=== PATIENT | male | born 1955 | race Caucasian/White ===

== ENCOUNTER 2020-05-02 11:57 | Inpatient (IN) | payer MEDICARE, OTHER, SELFPAY ==
[2020-05-02] VITALS (8 sets, daily range): BP systolic 91–138; BP diastolic 60–94; PULSE 76–126; RESP 14–32; TEMP 36.7–36.8; O2SAT 92–100; BMI 36.5
--- NOTE | 2020-05-02 12:39 | XR_ITS ---
WS: [id number] Exam: XR chest 1V portable [id number] Date/Time of Exam: 05/02/2020 1:51 PM Reason For Exam: palpitations Findings: No priors. There is infiltrate along the right heart border. This could represent pneumonia or chronic change. T he heart is enlarged. Costophrenic angles are slightly blunted which may represent a small pleural ef fusion versus pleural thickening. No pneumothorax. The mediastinum and bony thorax are unremarkable. XR/XR chest 1V portable [id number] IMPRESSION: 1. Infiltrate along the right heart border. This could represent pneumonia or c hronic change. 2. Cardiac enlargement. 3. Slightly blunted costophrenic angle suggesting either minimal pleural effusi on or pleural thickening.
--- NOTE | 2020-05-02 12:40 | ECG_ITS ---
[facility] Test Date: 2020-05-02 Pat Name: Abarham Newton Department: Room: 107 Gender: Male System Dispatcher: GILA FELTONB: 1955 Requested By: Da Alvarado Order Number: [id number] Cast MD: Eloisa Helms M.D. Measurements Intervals [facility] Rate: 133 P: [place]: -1 QRS: 62 QRSD: 88 T: 95 QT: 314 QTc: 469 Interpretive Statements ATRIAL FIBRILLATION WITH RAPID VENTRICULAR RESPONSE ANTEROLATERAL MYOCARDIAL INFARCTION [40+ ms Q WAVE IN I/aVL/V3-V6], OF INDETERMINATE AGE No previous ECG available for comparison Electronically Signed On 05-03-2020 7:18:40 CDT by Eloisa Helms M.D. [id number]
--- NOTE | 2020-05-02 12:54 | USCV_ITS ---
Abraham Newton Age: 65 Gender: M : 1955 Exam Date: 05/02/2020 13:21 Ordering Phys: Luz Ferris MD Technologist: Girma Lopez Exam Location: [facility] [place] Indication: LEG PAIN Risk Factors: Previous Vascular Surgery: RIGHT LEFT BP: 116.0 / 92.00 BP: 125.0/ 91.00 0 0 Waveform Velocity (cm/s) Velocity (cm/s) Waveform Triphasic 57.5 Iliac Prox 75.1 Triphasic Triphasic 74.9 Iliac Mid 72.5 Triphasic Triphasic Iliac Distal Triphasic 87.6 71.8 Triphasic 92.0 SERVICE OBSERVER CHIEF 62.1 Triphasic Triphasic 48.0 SFA Prox 53.7 Triphasic Triphasic 89.7 SFA Mid 65.4 Triphasic Triphasic 52.0 SFA Dist 58.8 Triphasic Triphasic 40.1 POP 23.1 Triphasic Monophasic 96.6 VICE PRESIDENT 19.5 Monophasic Monophasic DPA 32.7 Monophasic 1.4 LIZZ 0.7 FINDINGS Mild to moderate diffuse plaques in the iliac and femoral arteries Supernormal resting LIZZ on the right side. Moderately diminished resting LIZZ on the left side CONCLUSIONS Abnormal resting LIZZ on the left side, suggestive of moderate peripheral artery disease. Mild to moderate diffuse plaque in the iliac and femoral arteries bilaterally Dr Jacqueline Desai MD [facility] (Electronically Signed) Final Date: 02 May 2020 20:17 S
--- NOTE | 2020-05-02 12:55 | ED_ITS ---
HPI - Arrhythmia/Palpitations General: Chief Complaint: Arrhythmia/Palpitations Stated Complaint: Swelling in legs Time Seen by Provider: 05/02/20 12:37 Source: patient Mode of arrival: ambulatory Limitations: no limitations History of Present Illness: HPI narrative: 65-year-old male who just moved here 3 days ago. He has a history of A. fib along with CHF. He states that he lost all of his medications in his move and does not have a primary care doctor here. He states he only medicine that he has been taking his Xarelto. He had increased swelling in his legs along with shortness of breath and palpitations. Patient is in A. fib here with heart rate in the 140s. He denies any chest pain. Denies any worsening or improving factors. Denies any fevers. Associated symptoms: Deny nausea or vomiting Review of Systems Const: Denies: fever(s), chills, body aches or change in appetite Eyes: Denies: blurry vision or eye discomfort ENMT: Denies: throat pain or dental pain Card: Denies: chest pain Resp: Denies: dyspnea GI: Denies: abdominal pain, nausea, vomiting or diarrhea : Denies: dysuria Musc: Reports: extremity swelling Skin/Breast: Denies: rash Neuro: Denies: headache(s) Psych: Denies: depression Edward/Lymph: Denies: easy bruising All/Imm: Denies: urticaria Physical Exam Const: COMMON NORMALS: no acute distress, patient oriented x3 and healthy appearing HENMT: COMMON NORMALS: normocephalic and atraumatic HEAD & SCALP: normocephalic and atraumatic Eye: COMMON NORMALS: Equal, round and reactive pupils present and EOMs intact bilaterally PUPIL: Yes Equal, round and reactive pupils present Neck/C-Spine: COMMON NORMALS: full ROM and supple Chest: COMMONS NORMALS: normal inspection of the chest and normal palpation of entire chest wall Resp: COMMON NORMALS: normal respiratory effort, No retractions, No use of accessory muscles and clear to auscultation bilaterally AUSCULTATION: clear to auscultation bilaterally Cardio: COMMON NORMALS: regular rate and No murmurs present (Cardio) RATE: regular rate and tachycardic RHYTHM: abnormal rhythm irregularly irregular GI: COMMON NORMALS: Normal to inspection, nondistended, normoactive bowel sounds present, Soft to palpation, non-tender and no masses PALPATION: Yes Soft to palpation Extremity: COMMON NORMALS: normal to inspection and full ROM NARRATIVE EXTREMITY EXAM: 2+ edema to lower extremities Neuro: COMMON NORMALS: patient oriented x3, moves all extremities and no focal motor deficits Psych: COMMON NORMALS: mental status grossly normal, Normal thought process present and cooperative THOUGHT PROCESS: Normal thought process present Skin: COMMON NORMALS: no rashes or lesions noted and no wounds GENERAL SKIN EXAM: no rashes or lesions noted Course Vital Signs: Vital signs: Vital Signs Temperature 98.3 F 05/02/20 12:27 Pulse Rate 114 H 05/02/20 13:30 Respiratory Rate 32 H 05/02/20 13:30 Blood Pressure 122/90 05/02/20 13:30 Pulse Oximetry 92 05/02/20 13:30 MDM - Arrhythmia/Palpitations MDM Narrative: Medical decision making narrative: Patient presents here with A. fib RVR along with CHF exacerbation. This is likely due to noncompliance of his meds. Patient's heart rate here is improved with Cardizem and patient was placed on a Cardizem drip. I spoke to hospitalist and will admit. Patient has been stable while here. Patient has no signs of pneumonia or pulmonary embolism. Lab Data: Labs: Lab Results 05/02/20 05/02/20 05/02/20 Range/Units 12:53 12:53 12:53 WBC 7.6 (4.0-10.0) 10^3/ uL RBC 3.87 L (4.1-5.3) 10^6/u L Hgb 12.8 (11.7-16.6) g/dL Hct 41.5 L (42.0-52.0) % MCV 107.2 H (80-94) fL MCH 33.1 (28.0-34.0) pg MCHC 30.8 (30.0-36.0) g/dL RDW 15.3 H (12.1-15.1) % Plt Count 174 (130-400) 10^3/c mm MPV 11.4 H (7.4-10.4) fL Neut % (Auto) 69.3 % Lymph % (Auto) 21.9 % Martin % (Auto) 5.9 % Eos % (Auto) 1.8 % Baso % (Auto) 0.7 % Neut # (Auto) 5.27 (1.8-7.7) 10^3/u L Lymph # (Auto) 1.7 (0.8-4.8) 10^3/u L Martin # (Auto) 0.5 (0.2-0.9) 10^3/u L Eos # (Auto) 0.1 (0.0-0.8) 10^3/u L Baso # (Auto) 0.1 (0.0-0.1) 10^3/u L Nucleated RBC % (a uto) 0 % Nucleated RBCs # 0.0 /100WBC Sodium 138 (136-145) mmol/L Potassium 3.5 (3.5-5.1) mmol/L Chloride 100 (98-107) mmol/L Carbon Dioxide 23 (22-29) mmol/L Anion Gap 18.5 (5-19) BUN 21 (8-23) mg/dL Creatinine 1.1 (0.7-1.2) mg/dL GFR Calculation 67.0 L (90-130) mL/min Glucose 110 (65-115) mg/dL Calculated Osmolal ity 290 (285-295) mOsm/k g Calcium 10.0 (8.5-10.5) mg/dL Total Bilirubin 1.3 H (0.15-1.2) mg/dL AST 20 (0-40) U/L ALT 10 (0-41) U/L Alkaline Phosphata se 69 (40-130) IU/L Troponin T Baselin e 38 H (0-15) ng/L NT-Pro-B Natriuret Pep 5444 H (0-125) pg/mL Total Protein 7.4 (6.6-8.7) g/dL Albumin 4.0 (3.5-5.2) g/dL Globulin 3.4 (1.3-4.6) g/dL Imaging Data^: CXR: Radiologist's impression: [address] [address] XRay Report Signed Patient: Abraham Newton Unit #: [id number] : 1955 Age/Sex: 65 / M ADM Date: 04/08 12/25 Loc: ER Room/Bed: Attending Dr: Ordering Provider/Ordering MD: Da Alvarado Date of Service: 05/02/20 Procedure(s): XR chest 1V portable [id number] Accession Number(s): [id number] Report Number: [id number] WS: [id number] Exam: XR chest 1V portable [id number] Date/Time of Exam: 05/02/2020 1:51 PM Reason For Exam: palpitations Findings: No priors. There is infiltrate along the right heart border. This could represent pneumonia or chronic change. The heart is enlarged. Costophrenic angles are slightly blunted which may represent a small pleural effusion versus pleural thickening. No pneumothorax. The mediastinum and bony thorax are unremarkable. XR/XR chest 1V portable [id number] IMPRESSION: 1. Infiltrate along the right heart border. This could represent pneumonia or chronic change. 2. Cardiac enlargement. 3. Slightly blunted costophrenic angle suggesting either minimal pleural effusion or pleural thickening. EKG Data^: EKG 1: Attestation: I personally reviewed and interpreted this EKG as follows: EKG interpretation date: 05/02/20 EKG interpretation time: 12:26 Interpretation: afib hr [address] or t wave abnormalities qrs 88 qtc 392 Other EKG comments: Chest X-Ray 05/02/20 12:39 IMPRESSION: 1. Infiltrate along the right heart border. This could represent pneumonia or chronic change. 2. Cardiac enlargement. 3. Slightly blunted costophrenic angle suggesting either minimal pleural effusion or pleural thickening. Discharge Plan Discharge Patient Disposition: Admitted As Inpatient Clinical Impression: Atrial fibrillation Qualifiers: Atrial fibrillation type: unspecified Qualified Code(s): I48.91 - Unspecified atrial fibrillation Congestive heart failure Qualifiers: Heart failure type: unspecified Condition: Stable Coding Level of Care Code ED Explosive Ordnance Technician for Chg Fwd Exam Comprehensive
[2020-05-02 13:08] LABS: Basophils # 0.1 10^3/uL (0.0-0.1); Basophils % 0.7 %; Eosinophils # 0.1 10^3/uL (0.0-0.8); Eosinophils % 1.8 %; Hematocrit 41.5 % (42.0-52.0); Hemoglobin 12.8 g/dL (11.7-16.6); Lymphocytes # 1.7 10^3/uL (0.8-4.8); Lymphocytes % 21.9 %; Mean Corpuscular HGB Conc 30.8 g/dL (30.0-36.0); Mean Corpuscular Hemoglobin 33.1 pg (28.0-34.0); Mean Corpuscular Volume 107.2 fL (80-94); Mean Platelet Volume 11.4 fL (7.4-10.4); Monocytes # 0.5 10^3/uL (0.2-0.9); Monocytes % 5.9 %; Neutrophils # 5.27 10^3/uL (1.8-7.7); Neutrophils % 69.3 %; Nucleated Red Blood Cells % 0 %; Platelet Count 174 10^3/cmm (130-400); Red Blood Count 3.87 10^6/uL (4.1-5.3); Red Cell Distribution Width 15.3 % (12.1-15.1); White Blood Count 7.6 10^3/uL (4.0-10.0)
[2020-05-02 13:32] LABS: Troponin(5th) Baseline 38 ng/L (0-15)
[2020-05-02 13:40] LABS: Alanine Aminotransferase 10 U/L (0-41); Alkaline Phosphatase 69 IU/L (40-130); Aspartate Amino Transferase 20 U/L (0-40); Blood Urea Nitrogen 21 mg/dL (8-23); Carbon Dioxide 23 mmol/L (22-29); Chloride 100 mmol/L (98-107); Globulin 3.4 g/dL (1.3-4.6); Glucose 110 mg/dL (65-115); NT Pro B Type Natriuretic Pept 5444 pg/mL (0-125); Osmolality Calculated 290 mOsm/kg (285-295); Sodium 138 mmol/L (136-145); Total Bilirubin 1.3 mg/dL (0.15-1.2); Total Protein 7.4 g/dL (6.6-8.7)
[2020-05-02 13:54] LABS: Anion Gap 18.5 (5-19); Potassium 3.5 mmol/L (3.5-5.1)
--- NOTE | 2020-05-02 14:40 | ECG_ITS ---
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 Measurements Intervals [place] Rate: 107 P: [place]: -1 QRS: 75 QRSD: 98 T: 91 QT: 372 QTc: 497 Interpretive Statements ATRIAL FIBRILLATION WITH RAPID VENTRICULAR RESPONSE LOW QRS VOLTAGE IN EXTREMITY LEADS [QRS DEFLECTION < 0.5 mV IN LIMB LEADS] PROBABLE INFERIOR MYOCARDIAL INFARCTION , PROBABLY OLD [35 ms Q WAVE IN II/aVF] ANTEROLATERAL MYOCARDIAL INFARCTION , OF INDETERMINATE AGE [40+ ms Q WAVE IN I/aVL/V3-V6] Compared to ECG 05/02/2020 12:26:09 Low QRS voltage now present Myocardial infarct finding still present Electronically Signed On 05-03-2020 7:36:37 CDT by Eloisa Helms M.D. [id number] f
--- NOTE | 2020-05-02 15:16 | P.HP_ITS ---
Providers/Chief Complaint Admitting Physician: Ced Hankins Chief Complaint: Swelling in legs History of Present Illness Abraham Newton is a 65 year old gentleman originally from [place], but states his other home is in [place], has been traveling across the country with his sons in a trailer. He has a history of CHF, AFib and says several months ago had a stress test in [place], although did not require an angiogram at that time. Says he has been getting tired easily, short of breath with exertion, also having orthopnea, and has not been able to sleep. Also noticed has been having more progressive swelling in lower extremities, with some bilateral erythema. A day ago also noticed blue discoloration of his lateral 3 digits on the right foot. Denies any trauma. He says that his medications got wet and he has not been able to take any of his medicines which include aspirin, statin, Lasix, lisinopril, metoprolol, as well as has missed some doses of Xarelto among a few others. He takes Xarelto for atrial fibrillation. Denies history of DVT or PE. He says he is been working with at risk [place]. He says he has been drinking a lot of water there. He denies any fevers, any cough, has had no chest pain. Denies any headache, runny nose, sneezing, muscle aches or chills. No nausea vomiting or diarrhea. He is not normally on oxygen. He says he used to smoke, and stopped for a while, but recently has been feeling depressed, and so has been taking some occasional cigarettes. He states he drinks alcohol only on occasion. He says he used to take Xanax for anxiety. Has not been on antidepressant medication. He denies any suicidal ideation. In ER he is noted with A. fib with RVR, heart rates in 130s. First troponin is 38. No chest pain. He started on Cardizem drip, with improvement down to 100s. Maintaining blood pressure. Chest x-ray with possible infiltrate on chronic change along the right heart border. BNP is elevated. At 5444. Creatinine 1.1. He reports feeling anxious and is asking for Xanax which he says used to take in the past. Review of Systems Const: Reports: change in sleep pattern (Not sleeping well. Is to sleep in a chair. Wakes up due to dyspnea.); Denies: fever(s), chills, body aches or malaise Eyes: Denies: change in vision or eye redness ENMT: Denies: throat pain, oral sores or ear or mastoid pain Card: Reports: irregular heart rhythm, edema, swelling of feet/ankles, dyspnea on exertion, orthopnea and other (Blue lateral 3 toes on the right foot in the last 1 day or so, no pain); Denies: chest pain or pre-syncope Resp: Reports: dyspnea; Denies: productive cough, non-productive cough, wheezing, pain on inspiration, change in phlegm color, hemoptysis or chest congestion GI: Denies: abdominal pain, nausea, vomiting, diarrhea, constipation, hematochezia or melena : Denies: flank pain, difficulty urinating, urinary frequency or hematuria Musc: Reports: other (Bilateral lower extremity edema. Right foot lateral 3 toes blue discoloration, although left side is doing it feels cooler to touch. Left side somewhat cool to touch, but dopplerable PT and DP pulses bilaterally.); Denies: joint pain, joint swelling or joint redness Skin/Breast: Reports: erythema (Chronic bilateral lower extremities below the knees) Neuro: Denies: headache(s), numbness in extremities, weakness in extremities, dizziness, confusion or seizure-like activity Endo: Denies: polyuria or polydipsia Edward/Lymph: Denies: easy bleeding or purpura All/Imm: Denies: urticaria, throat swelling or tongue swelling Medications/Allergies Home Medications Medication Instructions Recorded Confirmed Last Taken Type acetaminophen [Tylenol Extra 1,000 mg PO PRN 05/02/20 05/02/20 05/01/20 History Strength] aspirin 81 mg PO DAILY 05/02/20 05/02/20 Unknown History atorvastatin [Lipitor] 20 mg PO BEDTIME 05/02/20 05/02/20 05/01/20 History furosemide [Lasix] 40 mg PO DAILY 05/02/20 05/02/20 Unknown History lisinopril 20 mg PO DAILY 05/02/20 05/02/20 Unknown History magnesium 1 tab PO DAILY 05/02/20 05/02/20 Unknown History metoprolol succinate 100 mg PO DAILY 05/02/20 05/02/20 Unknown History potassium chloride See Rx Instructions .ROUTE .COMPLEX 05/02/20 05/02/20 Unknown History rivaroxaban [Xarelto] 20 mg PO DAILY 05/02/20 05/02/20 05/01/20 History Allergies Allergy/AdvReac Type Severity Reaction Status Date / Time No Known Allergies Allergy Verified 05/02/20 14:33 PFSH Acute PFSH: Medical History Anxiety Atrial fibrillation Congestive heart failure HLD (hyperlipidemia) HTN (hypertension) Smoking addiction Surgical History History of back surgery Family History Father CAD (coronary artery disease) Open heart surgery Social History Smoking and tobacco status: current some day smoker cigarettes [ Other cigarette details: Subsequently heavy smoker, quit for a while, but recently has been occasionally smoking a cigarette ] Alcohol intake: current Alcohol intake frequency: holidays/special occasions only Substance/Drug Use: former Date of last use: Occasional marijuana use where it was legal in [facility] Lives independently: Yes Household members: children and other Details: Lives with his son Marital status: Current occupational status: employed Vitals/I&O/Wt Last Vital Signs Temp 98.3 F 05/02/20 12:27 Pulse 111 H 05/02/20 14:30 Resp 32 H 05/02/20 14:30 BP 130/88 05/02/20 14:30 Pulse Ox 95 05/02/20 14:30 Weight last 48 hrs Weight 108.862 kg Physical Exam Const: COMMON NORMALS: no acute distress and patient oriented x3 HENMT: COMMON NORMALS: oropharynx normal Neck/C-Spine: COMMON NORMALS: no JVD Resp: COMMON NORMALS: normal respiratory effort and clear to auscultation bilaterally AUSCULTATION: clear to auscultation bilaterally Cardio: COMMON NORMALS: no JVD, regular rhythm, S1 normal heart sound present, S2 normal heart sound present and No murmurs present (Cardio) RATE: tachycardic RHYTHM: abnormal rhythm irregularly irregular HEART SOUNDS: S1 normal heart sound present and S2 normal heart sound present PERIPHERAL PULSES: posterior tibial pulses present (By Doppler) positive bilateral and dorsalis pedis present (By Doppler) GI: COMMON NORMALS: Normal to inspection, nondistended, normoactive bowel sounds present, Soft to palpation and non-tender PALPATION: Yes Soft to palpation Extremity: COMMON NORMALS: no joint enlargement GENERAL: Yes edema (3+) RIGHT LOWER EXTREMITY: Yes foot & digits (Blue discoloration lateral 3 digits, mostly dorsal distribution. Foot does not feel cold.) Neuro: COMMON NORMALS: patient oriented x3 and moves all extremities Skin: COMMON NORMALS: no rashes or lesions noted GENERAL SKIN EXAM: erythema (Chronic venous stasis bilateral lower extremities below the knees) Data : 05/02/20 12:53 05/02/20 12:53 A&P Assessment and plan (1) Paroxysmal atrial fibrillation with RVR: A. fib with RVR heart rate in 130s. Medications got worse over the been taking them. Used to be on metoprolol 100 mg daily. Xarelto. Continue Cardizem. Monitor on telemetry. Replace hypomagnesemia. Treat CHF. Status: Acute (2) Acute exacerbation of CHF (congestive heart failure): Acute CHF, type unknown. Reports history of CHF, does not remember his EF. Will assess by TTE. Lasix 40 mg IV every 12 hours. Monitor I&O. Daily weights. Bilateral lower extremity edema, will also check duplex to exclude VTE as he has not been taking Xarelto. Follow troponin EKG series. Hold lisinopril for now diarrhea and in case may require contrast studies. Continue aspirin, beta-dorian, statin. Status: Acute (3) Blue toes: Reports about a day history of blue toes, lateral 3 toes on the right foot appear blue. Not painful. Sensation appears intact. He is afebrile, and has not been taking his Xarelto, discussed with him possibility of embolic disease, thrombus, versus plaque with blue toe syndrome, as he does have risk factors for cardiovascular disease. At this time will anticoagulate. X-ray obtained, no fractures noted. Arterial duplex was obtained in ER. Requesting also for toe brachial pressures. TTE. Neurovascular checks. Appreciate interventional cardiology assessment. No signs of sepsis. We will obtain blood culture. Status: Acute (4) Venous stasis dermatitis: Bilaterally. Treat CHF. Assess arterial perfusion. If good, can consider compression therapy. Status: Acute (5) Anxiety: Would benefit from follow-up with [facility] after discharge. Has been recently having more anxiety, also depression. Denies any suicidal ideation. Request for Xanax which she used to take for anxiety. Monitor for any changes in symptoms. Consider initiation of additional therapy if remains stable from cardiac perspective. Status: Acute (6) Smoking addiction: Discussed smoking cessation for 4 minutes. He states he understands that he needs to quit. Says that he had quit entirely in the past, but recently has been more stressed and has been taking occasional cigarettes. Will provide nicotine replacement as needed while in the hospital. Continue to encourage cessation. Will need additional evaluation of his anxiety and depression. Status: Acute (7) Pulmonary infiltrate: Incidentally noted pulmonary filtrate at the right heart border. Otherwise has no symptoms of pneumonia. Has had no fevers, there is no leukocytosis. She is not coughing. This may be secondary to CHF. We will closely assess by CT of the chest. For now noncontrast. Duplex lower extremities. He is initiated on anticoagulation. Will assess blood culture. For now monitor without antibiotics. Treat CHF. Status: Acute Additional A&P Information Lack of adherence with medical therapy: He says his medications got wet, and because of that has not been taking them, he says intermittently only been taking Xarelto. Looking through his bottles many of them were empty and filled in February. He states he does not currently see a primary care provider. Attestations Medical Necessity Statement*: Admission for 2 midnights continued for asse ssment of management of CHF exacerbation, A. fib with RVR, blue toes, off his medical therapy for unknown amount of time. Coding Level of Care Code Acute Drill Operator Automatic for [facility] Fwd Exam Comprehensive Diagnoses Paroxysmal atrial fibrillation with RVR I48.0 Acute exacerbation of CHF (congestive heart failure) I50.9 Blue toes R23.0 Venous stasis dermatitis I87.2 Anxiety F41.9 Smoking addiction F17.200 Pulmonary infiltrate R91.8
--- NOTE | 2020-05-02 15:40 | USCV_ITS ---
Abraham Newton Age: 65 Gender: M : 1955 Exam Date: 05/02/2020 16:24 Ordering Phys: Ced Hankins MD Technologist: Jenae Shelton [place] [facility] [place] CHF BP: 138 / 94 HR: 116 Rhythm: Sinus Technical Quality: Adequate MEASUREMENTS (Male / Female) Normal Values 2D ECHO LV Diastolic Diameter PLAX 5.1 cm 4.2 - 5.9 / 3.9 - 5.3 cm LV Systolic Diameter PLAX 4.1 cm LV Chamber Size 5.0 cm IVS Diastolic Thickness 1.3 cm 0.6 - 1.0 / 0.6 - 0.9 cm IVS Systolic Thickness 1.4 cm LVPW Diastolic Thickness 1.6 cm 0.6 - 1.0 / 0.6 - 0.9 cm LVPW Systolic Thickness 1.7 cm RV Chamber Size 3.5 cm LVOT Diameter 2.0 cm LV Ejection Fraction 2D Teich 40.7 % LV Ejection Fraction MOD 2C 47.8 % LV Ejection Fraction 2C AL 45.9 % LA Diameter 4.7 cm LA Width 3.9 cm LA Height 5.9 cm RA Width 5.6 cm RA Height 5.7 cm Aorta at Sinotubular Diameter 2.6 cm M-MODE LV Diastolic Diameter MM 6.5 cm 4.2 - 5.9 / 3.9 - 5.3 cm LV Systolic Diameter MM 5.3 cm LV Ejection Fraction MM Teich 38.1 % IVS Diastolic Thickness MM 1.1 cm 0.6 - 1.0 / 0.6 - 0.9 cm IVS Systolic Thickness MM 0.9 cm LVPW Diastolic Thickness MM 1.0 cm 0.6 - 1.0 / 0.6 - 0.9 cm LVPW Systolic Thickness MM 1.3 cm Aortic Annulus Diameter 2.8 cm LA Ao Ratio MM 1.8 MV E Point Septal Separation 1.4 cm DOPPLER AV Peak Velocity 106.3 cm/s LVOT Peak Velocity 73.3 cm/s AV Area Cont Eq vti 2.0 cm squared AV Area Cont Eq pk 2.1 cm squared MV Area PHT 8.1 cm squared Mitral E to A Ratio 5.3 MV E' Velocity 102.0 cm/s TR Peak Velocity 323.4 cm/s TR Peak Gradient 41.8 mmHg TR Mean Velocity 266.1 cm/s TR Mean Gradient 31.9 mmHg TR Velocity Time Integral 96.5 cm TV Peak E Velocity 75.0 cm/s Right Atrial Pressure 3.0 mmHg Pulmonary Artery Systolic Pressu 44.8 mmHg PV Peak Velocity 60.0 cm/s RV Acceleration Time 0.1 s RV Ejection Time 0.3 s RV AcT/ET 0.4 FINDINGS Left Ventricle Moderately increased left ventricular cavity size. Severely decreased left ventricular systolic function. Global left ventricular hypokinesis. Left ventricular ejection fraction is estimated at 38 %. Grade III/IV diastolic dysfunction (restrictive filling pattern), severely elevated filling pressures. Right Ventricle Normal right ventricular size. Moderate pulmonary hypertension, RVSP 44.8 mmHg. Right Atrium Moderately increased right atrial size. Left Atrium Moderately increased left atrial size. Mitral Valve Moderately thickened mitral valve. No mitral valve stenosis. Moderate mitral valve regurgitation. Aortic Valve Severe aortic valve calcification. Mild restriction of aortic valve noted otherwise no significant stenosis. Trace aortic insufficiency Tricuspid Valve Thickened tricuspid valve. Moderate tricuspid valve regurgitation. Pulmonic Valve Structurally normal pulmonic valve without significant stenosis. There is no pulmonic regurgitation. Pericardium Normal pericardium without effusion. Aorta Normal ascending aorta dimension. CONCLUSIONS 1-Moderately increased left ventricular cavity size. Severely decreased left ventricular systolic function. Global left ventricular hypokinesis. Left ventricular ejection fraction is estimated at 38 %. Grade III/IV diastolic dysfunction (restrictive filling pattern), severely elevated filling pressures. 2-Normal right ventricular size. Moderate pulmonary hypertension, RVSP 44.8 mmHg. 3-Moderate biatrial enlargement 4-Moderately thickened mitral valve. No mitral valve stenosis. Moderate mitral valve regurgitation. 5-Severe aortic valve calcification. Mild restriction of aortic valve noted otherwise no significant stenosis. Trace aortic insufficiency. 6-Thickened tricuspid valve. Moderate tricuspid valve regurgitation. 7-There is no pericardial effusion. 8-Right atrial pressure is around 10 mm of mercury. 9-There are no prior echocardiogram studies to compare. Brennon Salazar MD (Electronically Signed) Final Date: 02 May 2020 17:29 S
--- NOTE | 2020-05-02 15:40 | USCV_ITS ---
Abraham Newton Age: 65 Gender: M : 1955 Exam Date: 05/02/2020 16:03 Ordering Phys: Ced Hankins MD Technologist: Jayne Pantoja [place] [facility] [place]: BLUE TOES RIGHT LEFT Brachial 138.00 mmHg Brachial 129.00 mmHg Pressure (mmHg) Waveform Pressure (mmHg) Waveform 87.00 Pre-Exercise Toe Pressure 71.00 0.63 Pre-Exercise Toe/Brachial Index 0.51 FINDINGS Assess TBI only Abnormal resting TBI's bilaterally CONCLUSIONS Abnormal resting TBIs bilaterally suggestive of mild to moderate peripheral artery disease Dr Jacqueline Desai MD FACC (Electronically Signed) Final Date: 02 May 2020 20:24 S
--- NOTE | 2020-05-02 15:40 | XR_ITS ---
WS: [id number] Exam: XR foot RT min 3V* [id number] Date/Time of Exam: 05/02/2020 3:40 PM Reason For Exam: blue lateral 3 toes No fracture or dislocation noted. No soft tissue foreign bodies. Moderate DJD at the first MP joint. No sign of bone destruction. Large plantar heel spur. XR/XR foot RT min 3V* [id number] IMPRESSION: 1. No fracture or dislocation. 2. Other minor findings as above.
--- NOTE | 2020-05-02 15:40 | USCV_ITS ---
NewtonAbraham Age: 65 Gender: M : 1955 Exam Date: 05/02/2020 16:12 Ordering Phys: Ced Hankins MD Technologist: Jenae Shelton Exam Location: [facility] [place] Indication: assess for DVT HISTORY: DVT. PROCEDURES: Venous duplex imaging was performed in bilateral lower extremities. The following venous structures were evaluated: common femoral vein, profunda vein, proximal portion of the greater saphenous vein, superficial femoral vein, and the popliteal vein. In addition, the posterior tibial and peroneal trunk were evaluated. Serial compression, augmentation maneuvers, and spectral Doppler flow evaluation were performed. FINDINGS: Normal 2-D Doppler and augmentation and compressibility throughout the lower extremity venous structures. Additional imaging through the proximal calf veins also reveals no thrombus. Limited evaluation of the greater saphenous vein is patent with no thrombus. CONCLUSIONS No DVT bilateral lower extremities. Dr. Toya Odell DO (Electronically Signed) Final Date: 03 May 2020 09:01 S
[2020-05-02 16:15] LABS: Estmated Average Glucose 103; Hemoglobin A1C 5.2 % (4.0-6.0)
[2020-05-02 16:27] LABS: Troponin 5 2HR 35.24 ng/L (0-15)
[2020-05-02 16:31] LABS: Troponin 5 2HR Delta -2.76 ABS# (0-10)
[2020-05-02 16:32] LABS: C Reactive Protein 20.5 mg/L (0.0-4.9)
[2020-05-02 16:46] LABS: Magnesium 1.4 mg/dL (1.7-2.3)
[2020-05-02] MEDS: FUROsemide 10 mg/mL SDV 4mL 40 MG IVP (17:43)
[2020-05-02] MEDS: magnesium sulfate premix 2 GM/50 ML PIGGYBACK IV (17:43)
[2020-05-02] MEDS: metoprolol tartrate 50 mg Tablet 100 MG PO (17:44)
[2020-05-02] MEDS: enoxaparin 100 mg/mL Syringe SUBCUT (17:44)
--- NOTE | 2020-05-02 18:40 | ECG_ITS ---
[facility] Test Date: 2020-05-02 Pat Name: Abraham Newton Department: Room: 107 Gender: Male Coater Smoking Pipe: : 1955 Requested By: Da Alvarado Order Number: [id number] Cast MD: Eloisa Helms M.D. Measurements Intervals [place] Rate: 72 P: [place]: -1 QRS: 46 QRSD: 97 T: 79 QT: 442 QTc: 487 Interpretive Statements ATRIAL FIBRILLATION LOW QRS VOLTAGE IN EXTREMITY LEADS [QRS DEFLECTION < 0.5 mV IN LIMB LEADS] POSSIBLE INFERIOR MYOCARDIAL INFARCTION [30 ms Q WAVE IN II/aVF], PROBABLY OLD ANTEROLATERAL MYOCARDIAL INFARCTION [40+ ms Q WAVE IN I/aVL/V3-V6], OF INDETERMINATE AGE Compared to ECG 05/02/2020 14:39:44 No significant changes Electronically Signed On 05-03-2020 7:35:33 CDT by Eloisa Helms M.D. [email or web address]
[2020-05-02] MEDS: ALPRAZolam 0.5 mg Tablet PO (18:42)
[2020-05-02 19:14] LABS: Erythrocyte Sedimentation Rate 26 mm/hr (0-10)
[2020-05-02 19:27] LABS: Troponin 5 6HR 36.02 ng/L (0-15)
[2020-05-02 19:44] LABS: Troponin 5 6HR Delta -1.98 ng/L (0-12)
--- NOTE | 2020-05-02 19:52 | P.CONIM_ITS ---
Providers/Reason For Consult Consulting Physican/Specialty*: Cardiology Reason for Consult*: CHF, peripheral arterial disease Attending Physician: Ced Hankins History of Present Illness History of Present Illness Abraham Newton is a 65 year old male past medical history significant for congestive heart failure hypertension chronic atrial fibrillation on anticoagulation with questionable compliance was traveling in the area when past for the past few days he has quit taking his medicine including anticoagulation due to nuisance of taking it. He reports that he developed quickly lower extremity edema and now PND orthopnea to the extent that he was not able to lay flat therefore he decided to come to the ER. He was admitted for decompensated congestive heart failure unspecified for now. Due to bluish discoloration of the feet we were also consulted to assess his lower extremity vascular system. Patient denies any claudication he admits to smoking he denies any prior history of peripheral vascular disease he denies history of coronary artery disease and stroke. Currently he denies chest pain. He has good dopplerable posterior tibial pulse in both feet he has 2+ lower extremity edema anterior tibial were not palpable but both feet has good capillary refill and temperature. Review of Systems Const: Reports: change in sleep pattern (Not sleeping well. Is to sleep in a chair. Wakes up due to dyspnea.); Denies: fever(s), chills, body aches, change in appetite or malaise Eyes: Denies: change in vision, blurry vision, eye discomfort or eye redness ENMT: Denies: throat pain, oral sores, dental pain or ear or mastoid pain Card: Reports: irregular heart rhythm, edema, swelling of feet/ankles, dyspnea on exertion, orthopnea and other (Blue lateral 3 toes on the right foot in the last 1 day or so, no pain); Denies: chest pain or pre-syncope Resp: Reports: dyspnea; Denies: productive cough, non-productive cough, wheezing, pain on inspiration, change in phlegm color, hemoptysis or chest congestion GI: Denies: abdominal pain, nausea, vomiting, diarrhea, constipation, hematochezia or melena : Denies: flank pain, difficulty urinating, dysuria, urinary frequency or hematuria Musc: Reports: extremity swelling and other (Bilateral lower extremity edema. Right foot lateral 3 toes blue discoloration, although left side is doing it feels cooler to touch. Left side somewhat cool to touch, but dopplerable PT and DP pulses bilaterally.); Denies: joint pain, joint swelling or joint redness Skin/Breast: Reports: erythema (Chronic bilateral lower extremities below the knees); Denies: rash Neuro: Denies: headache(s), numbness in extremities, weakness in extremities, dizziness, confusion or seizure-like activity Psych: Denies: depression Endo: Denies: polyuria or polydipsia Edward/Lymph: Denies: easy bruising, easy bleeding or purpura All/Imm: Denies: urticaria, throat swelling or tongue swelling Meds/Allergies Home Medications and Allergies Home Medications Medication Instructions Recorded Confirmed Last Taken Type acetaminophen [Tylenol Extra 1,000 mg PO PRN 05/02/20 05/02/20 05/01/20 History Strength] aspirin 81 mg PO DAILY 05/02/20 05/02/20 Unknown History atorvastatin [Lipitor] 20 mg PO BEDTIME 05/02/20 05/02/20 05/01/20 History furosemide [Lasix] 40 mg PO DAILY 05/02/20 05/02/20 Unknown History lisinopril 20 mg PO DAILY 05/02/20 05/02/20 Unknown History magnesium 1 tab PO DAILY 05/02/20 05/02/20 Unknown History metoprolol succinate 100 mg PO DAILY 05/02/20 05/02/20 Unknown History potassium chloride See Rx Instructions .ROUTE .COMPLEX 05/02/20 05/02/20 Unknown History rivaroxaban [Xarelto] 20 mg PO DAILY 05/02/20 05/02/20 05/01/20 History Allergies Allergy/AdvReac Type Severity Reaction Status Date / Time No Known Allergies Allergy Verified 05/02/20 14:33 Current Medications Current Medications Generic Name Dose Route Start Last Admin Trade Name Freq PRN Reason Stop Dose Admin Alprazolam 0.5 mg 05/02/20 18:13 05/02/20 18:42 Xanax PO 0.5 mg DAILY PRN Administration ANXIETY Enoxaparin Sodium 100 mg 05/02/20 16:00 05/02/20 17:44 Lovenox SUBCUT 100 mg Q12H YULI Administration Furosemide 40 mg 05/02/20 15:30 05/02/20 17:43 Lasix IVP 40 mg Q12H YULI Administration Diltiazem HCl 125 mg/ Sodium 125 mls @ 10 mls/hr 05/02/20 14:15 05/02/20 14:30 Chloride IV 10 mg/hr .[id number] YULI 10 mls/hr Administration 10 MG/HR Metoprolol Tartrate 100 mg 05/02/20 15:40 05/02/20 17:44 Lopressor PO 100 mg BID YULI Administration PFSH Acute PFSH: Medical History Anxiety Atrial fibrillation Congestive heart failure HLD (hyperlipidemia) HTN (hypertension) Peripheral Vascular Disease Smoking addiction Surgical History History of back surgery Family History Father CAD (coronary artery disease) Open heart surgery Social History Smoking and tobacco status: current some day smoker cigarettes [ Other cigarette details: Subsequently heavy smoker, quit for a while, but recently has been occasionally smoking a cigarette ] Alcohol intake: current Alcohol intake frequency: holidays/special occasions only Substance/Drug Use: former Date of last use: Occasional marijuana use where it was legal in [facility] Lives independently: Yes Household members: children and other Details: Lives with his son Marital status: Current occupational status: employed Vitals/I&O/Wt Last Vital Signs Temp 98.2 F 05/02/20 16:18 Pulse 101 H 05/02/20 16:18 Resp 24 H 05/02/20 16:18 BP 138/94 05/02/20 16:18 Pulse Ox 93 05/02/20 15:28 05/02/20 05/02/20 05/02/20 06:59 14:59 22:59 Intake Total 290 / 290 Output Total 600 / 600 Balance -310 / -310 Weight last 48 hrs Weight 240 lb Physical Exam Narrative: EXAM NARRATIVE: GENERAL: Patient is alert, awake and oriented x3. NECK: No jugular vein distension. HEENT: No cyanosis. No icterus. No pallor. HEART: Regular S1 and S2. No murmur, rub or gallop. LUNGS: Clear to auscultate bilaterally. ABDOMEN: Soft, nontender and nondistended. Positive bowel sounds. No guarding, rebound or tenderness. CENTRAL NERVOUS SYSTEM: Grossly nonfocal. EXTREMITIES: Lower extremities with 2+ edema bilaterally. Pulses palpable in the lower extremities, only posterior tibial. Dusky appearing feet but good capillary refill temperature is normal feet are moist denies any pain no ulcer Data Micro: Micro: Microbiology 05/02/20 18:30 Blood Culture - Pr eliminary Blood [facility] 05/02/20 11:44 Blood Culture - Pr eliminary Blood SPECIM[facility] A&P Assessment and plan (1) Paroxysmal atrial fibrillation with RVR: Patient has been started on Cardizem drip he is in sinus rhythm. Continue anticoagulation in the form of rivaroxaban. We will switch him to p.o. Cardizem along with metoprolol tomorrow. Status: Acute (2) Acute exacerbation of CHF (congestive heart failure): We agree with diuresis he has already been given 80 mg we will continue 80 mg IV Lasix twice a day along with electrolyte balance. He appeared to be volume overloaded requires 1.5 L negative at least per 24 hours. Status: Acute (3) Peripheral Vascular Disease: Patient has underlying peripheral arterial disease however it does not appear to be symptomatic or in the category of critical limb ischemia. Hopefully with diuresis and improvement of lower extremity edema feet will look better. He has good dopplerable posterior tibial pulse. We will reassess with ABIs once lower extremity edema will subside. Status: Acute Coding Level of Care Code New Pt Acute Acidity Tester for Chg Fwd Patient Type New History Detailed Exam Detailed Medical Decision Making Moderate Complexity Diagnoses Paroxysmal atrial fibrillation with RVR I48.0 Acute exacerbation of CHF (congestive heart failure) I50.9 Peripheral Vascular Disease I73.9
--- NOTE | 2020-05-02 20:17 | PC.NURSE ---
Alejandro Quintero called reguarding patient being nauseated after BM and vomiting. nOTIFED Patient blood pressure 88/46 then 86/57 heart rate 62 in afib. patient stated he was nauseated and having chest pain. Orders for EKG, shut off Cardizem to be shut off and to monitor blood pressure and zofran 4mg every 6hrs PRN.
[2020-05-02] MEDS: ondansetron 2 mg/ML SDV 2 mL 4 MG IVP (20:40)
--- NOTE | 2020-05-02 21:00 | PC.NURSE ---
Contacted Dr. Allen regarding patient looking pale, and regarding his still low blood pressure 81/55 Heart rate in the 60's. patient was placed on 2L nasal cannula cause he stated he was short of breath but his oxygen saturations were 98%. Orders to continue to monitor patient at this time.
--- NOTE | 2020-05-02 22:27 | PC.NURSE ---
Patient c/o chest pain. Dr. Allen in room to see patient. GI cocktail ordered.
--- NOTE | 2020-05-02 22:29 | PC.NURSE ---
recieved verbal order for calicum glucate 1gm IVPB x1 from Dr. Allen.
[2020-05-02] MEDS: lidocaine 2% viscous 15 ML, aluminum-mag hydrox-simethicon 30 ML, sucralfate oral liq 1 GM PO (22:34)
--- NOTE | 2020-05-02 22:35 | PC.NURSE ---
Dr. Allen reviewed patients most recent EKG and labs. No orders recieved.
--- NOTE | 2020-05-02 22:39 | PC.NURSE ---
Dr. Allen notified of there being 2 different orders for calcium gluconate. Ordered to only give one.
[2020-05-02] MEDS: midodrine 5 mg TABLET PO (22:41)
[2020-05-02] MEDS: sodium chloride 0.9% 250 ML IV (23:13)
--- NOTE | 2020-05-02 23:31 | PC.NURSE ---
Patient is sitting in wheelchair per his request at this time. Patient states about his chest pain, It doesn't hurt unless I move.
[2020-05-03] VITALS (40 sets, daily range): BP systolic 78–115; BP diastolic 57–83; PULSE 68–112; RESP 16–43; TEMP 36.4–36.8; O2SAT 87–100
--- NOTE | 2020-05-03 00:52 | PC.NURSE ---
Updated Dr. Allen that medications and bolus are finished. updated on current blood pressure. Told him patient only has chest pain when he stands up and moves. Also told him patient stated he did not want to go to CT right now and we would try in the morning. Patient does say he is feeling better than he was.
--- NOTE | 2020-05-03 04:04 | PC.NURSE ---
Dr. Allen called regarding Lasix dose. Orders to hold this dose. updated on last blood pressure 87/65. read back verbal order.
[2020-05-03] MEDS: enoxaparin 100 mg/mL Syringe SUBCUT (04:38)
--- NOTE | 2020-05-03 05:20 | PC.NURSE ---
End of shift: Patient states he feels better this morning blood pressure 115/ 73. Patient vitals are stable at this time and patient is alert and oriented.
[2020-05-03 05:26] LABS: Basophils # 0.1 10^3/uL (0.0-0.1); Basophils % 0.5 %; Eosinophils % 0.2 %; Hematocrit 39.8 % (42.0-52.0); Hemoglobin 12.6 g/dL (11.7-16.6); Lymphocytes # 1.1 10^3/uL (0.8-4.8); Lymphocytes % 10.5 %; Mean Corpuscular HGB Conc 31.7 g/dL (30.0-36.0); Mean Corpuscular Hemoglobin 33.1 pg (28.0-34.0); Mean Corpuscular Volume 104.5 fL (80-94); Mean Platelet Volume 11.9 fL (7.4-10.4); Monocytes % 8.9 %; Neutrophils # 8.57 10^3/uL (1.8-7.7); Neutrophils % 79.3 %; Nucleated Red Blood Cells % 0 %; Platelet Count 185 10^3/cmm (130-400); Red Blood Count 3.81 10^6/uL (4.1-5.3); Red Cell Distribution Width 15.4 % (12.1-15.1); White Blood Count 10.8 10^3/uL (4.0-10.0)
[2020-05-03 05:32] LABS: Alanine Aminotransferase 120 U/L (0-41); Albumin Level 3.6 g/dL (3.5-5.2); Alkaline Phosphatase 66 IU/L (40-130); Aspartate Amino Transferase 195 U/L (0-40); Blood Urea Nitrogen 27 mg/dL (8-23); Calcium 9.9 mg/dL (8.5-10.5); Carbon Dioxide 24 mmol/L (22-29); Chloride 100 mmol/L (98-107); Globulin 3.6 g/dL (1.3-4.6); Glomerular Filtration Rate 37.9 mL/min (90-130); Glucose 113 mg/dL (65-115); Osmolality Calculated 292 mOsm/kg (285-295); Sodium 138 mmol/L (136-145); Total Bilirubin 1.7 mg/dL (0.15-1.2); Total Protein 7.2 g/dL (6.6-8.7)
[2020-05-03 05:33] LABS: Magnesium 2.1 mg/dL (1.7-2.3)
[2020-05-03 05:39] LABS: Anion Gap 17.9 (5-19); Potassium 3.9 mmol/L (3.5-5.1)
--- NOTE | 2020-05-03 05:47 | PC.NURSE ---
Noticed Dr. Allen of BUN and creatine and ALT and AST. NO orders recieved.
--- NOTE | 2020-05-03 09:15 | PC.CHAP ---
Pastoral Care Encounter/Spiritual Assessment Type of Contact [] Declined archeologist classical visit [] Patient/Family/Request visit [] Outpatient visit [] Follow-up visit [] Physician referral [] Code/Alert [x] Routine visit [] Staff referral [] Actively dying [] Patient sleeping [] Family support [] [] Out of room [] Palliative care [] [] Receiving care in room [] Pre-surgical visit [] Trauma [] Long length of stay [] ICU visit [] Other: Relational/Emotional Strength [] Patient feels connected with others/family/visitors/staff [] Distress [] Loneliness/isolation [] Abandonment Spirituality of Patient [] Person of Delmi [] Attends Buddhism of their Delmi [] Believes in Prayer [] Reads Bible or Muslim materials [] There are Spiritual issues to be addressed 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 Interventions [x] Prayer [x] Active listening [x] Non-anxious presence [x] Spiritual/emotional support [] Crisis/trauma care [] Spiritual counseling [] Bereavement support [] Provided bereavement packet [] Provided Bible/devotional materials [] Provided toy/stuffed animal, coloring book to patient or family member [] Provided Communion [] Anointing/[place] [] Salvation [x] Completed spiritual assessment [] Other: Impact on Illness or Injury [] Angry [] Fearful [] Anxious [] Often cries [] Exhaustion [] Unable to work [] Unable to attend cheondoism [] Unable to walk/stand [] Unable to read [] Unable to drive [] Unable to eat/drink [] Unable to sleep [] Unable to be with family [] Patient intubated [] Other: Summary patient setting up/ breakfast... swelling being addressed... meds upset tummy, Time spent with patient 10 min
[2020-05-03] MEDS: aspirin 81 mg EC Tablet PO (09:38)
--- NOTE | 2020-05-03 11:30 | P.PN_ITS ---
Vitals/I&O/Wt Last Vital Signs Temp 97.9 F 05/03/20 07:40 Pulse 87 05/03/20 08:00 Resp 28 H 05/03/20 08:00 BP 100/65 05/03/20 08:00 Pulse Ox 92 05/03/20 07:40 05/02/20 05/03/20 05/03/20 22:59 06:59 14:59 Intake Total 346.667 / 346.667 510 / 856.667 240 / 240 Output Total 600 / 600 Balance -253.333 / -253.333 510 / 256.667 240 / 240 Weight last 48 hrs Weight 108.862 kg Data : 05/03/20 04:22 05/03/20 04:22 Micro: Microbiology 05/02/20 18:30 Blood Culture - Preliminary Blood SPECIMEN COLLECTED 05/02/20 11:44 Blood Culture - Preliminary Blood SPECIMEN COLLECTED A&P Assessment and plan (1) Paroxysmal atrial fibrillation with RVR: A. fib with RVR heart rate in 130s. Medications got worse over the been taking them. Used to be on metoprolol 100 mg daily. Xarelto. Continue Cardizem. Monitor on telemetry. Replace hypomagnesemia. Treat CHF. Status: Acute (2) Combined systolic and diastolic congestive heart failure, NYHA class 3: Status: Acute (3) BLAIR (acute kidney injury): Status: Acute (4) Elevated liver enzymes: Status: Acute (5) Peripheral Vascular Disease: Status: Acute (6) Venous stasis dermatitis: Status: Acute (7) Blue toes: Reports he has recurrent blue toes on and off whenever he is off medications and currently has been happening for 3 to 4 days prior to admission, lateral 3 toes on the right foot appear blue. Not painful. Sensation appears intact. He is afebrile, and has not been taking his Xarelto, discussed with him possibility of embolic disease, thrombus, versus plaque with blue toe syndrome, as he does have risk factors for cardiovascular disease. At this time will anticoagulate. X-ray obtained, no fractures noted. Neurovascular checks. Appreciate interventional cardiology assessment. No signs of sepsis. We will obtain blood culture. Status: Acute (8) Non-compliant behavior: Status: Acute (9) Smoking addiction: Discussed smoking cessation for 4 minutes. He states he understands that he needs to quit. Says that he had quit entirely in the past, but recently has been more stressed and has been taking occasional cigarettes. Will provide nicotine replacement as needed while in the hospital. Continue to encourage cessation. Will need additional evaluation of his anxiety and depression. Status: Acute (10) Anxiety: Would benefit from follow-up with [facility] after discharge. Has been recently having more anxiety, also depression. Denies any suicidal ideation. Request for Xanax which she used to take for anxiety. Monitor for any changes in symptoms. Consider initiation of additional therapy if remains stable from cardiac perspective. Status: Acute Additional A&P Information Paroxysmal A. fib: Patient has a history of atrial fibrillation as an outpatient. Not on any medications for last 1 week at least because of noncompliance. Patient was on Cardizem drip and started on oral metoprolol yesterday. Last night developed hypotension. Rate controlled at present. For now continue with metoprolol but at lower dose of 50 mg twice daily. Continue with telemetry. Jairon vas score 4. Patient is on full dose Lovenox for now. Switch over to home dose of Xarelto. Acute on chronic congestive heart failure: Combined systolic and diastolic type. Echocardiogram done earlier in this admission consistent with EF of 38% with grade 3 diastolic dysfunction with thickened mitral and aortic valves with moderate mitral regurgitation, trace aortic insufficiency, moderate TR with RVSP of 44.8 and moderate biatrial enlargement. Daily weights. Strict input output charting. Fluid restriction up to 1500 cc. Hypotension: Most likely because of overmedication from Cardizem, metoprolol and Lasix at the same time. Blood pressures better now. Keep mean pressures over 65 mmHg. We will continue to monitor. If patient continues to have further episodes of hypotension will most likely need dobutamine versus midodrine. BLAIR: Most likely because of hypotension last night. Baseline creatinine around 1.1 in the system. Hold off on any further diuresis and lisinopril for now. For now gently start on normal saline 50 cc/h. We will continue to monitor for fluid overload. Elevated liver enzymes: Most likely because of shock liver from hypotension. Given history of drug use in the past will rule out hepatitis. Check HIV as well. Hydration as above while watching for fluid overload. We will continue to monitor. Peripheral vascular disease: TBI results appreciated. Suggestive of mild to mo derate peripheral arterial disease. Continue with aspirin and Xarelto as above. For now hold off on statins because of elevated liver enzymes. HbA1c results appreciated. Discussed in detail regarding need of smoking cessation. Nicotine gums ordered. Greatly appreciate Dr. Salazar's recommendations. Plan to reassess LIZZ once lower extremity swelling subsides a little bit. Lack of adherence with medical therapy: He says his medications got wet, and because of that has not been taking them, he says intermittently only been taking Xarelto. Looking through his bottles many of them were empty and filled in February. He states he does not currently see a primary care provider. Full code. Xarelto will also help with DVT prophylaxis. Cardiac diet. Attestations Medical Necessity Statement*: Patient requires further hospitalization for management of acute on chronic mixed congestive heart failure, paroxysmal A. fib, BLAIR, deranged liver enzymes, peripheral vascular disease Time Spent in Patient Care: Greater than 35 minutes (>than 50% of time spent in counselling and/or direct pt care on unit) . Coding Level of Care Code Acute Grinding Wheel Inspector for Prabhu Peters Diagnoses Paroxysmal atrial fibrillation with RVR I48.0 Combined systolic and diastolic congestive heart failure, NYHA class 3 I50.40 BLAIR (acute kidney injury) N17.9 Elevated liver enzymes R74.8 Peripheral Vascular Disease I73.9 Venous stasis dermatitis I87.2 Blue toes R23.0 Non-compliant behavior R46.89 Smoking addiction F17.200 Anxiety F41.9
[2020-05-03] MEDS: metoprolol tartrate 50 mg Tablet PO (12:15)
[2020-05-03] MEDS: sodium chloride 0.9% 1,000 ML 50 ML IV (12:17)
--- NOTE | 2020-05-03 15:55 | CT_ITS ---
WS: [id number] Exam: CT chest wo con [id number] Date/Time of Exam: 05/03/2020 7:55 AM Reason For Exam: additional assessment of localized infiltrate. Also has blue toes. Technique: Axial contiguous CT images with coronal and sagital reformats. DLP: 867.[address] scans at [facility] use at least one of these dose optimization techniques: automat ed exposure control; mA and/or kV adjustment per patient size (includes targeted exams where dose is matched to clinical indication); or iterative reconstruction. Findings: The lungs are fully expanded and clear. There are small posterior bilateral pleural effusions identif ied most marked on the right. There is mild compressive atelectasis of both lower lobes. The airway i s patent. The thoracic aorta is normal in caliber. There is mild mediastinal lymphadenopathy. The lar gest node measures 1.5 cm in greatest short axis dimension and is noted at the anterior para carinal region. Coronary artery calcifications. No pericardial effusion. No destructive bone lesions are not ed. Spondylosis of the dorsal spine. No chest wall defects. Normal thyroid tissue. Asymmetrically inc reased subareolar parenchymal density of the left breast might be seen with gynecomastia. CT/CT chest wo con [id number] IMPRESSION: 1. Bilateral posterior pleural effusions most marked on the right with mild com pressive atelectasis of both lower lobes. 2. No sign of consolidating infiltrate or pulmonary mass. 3. Mild mediastinal lymphadenopathy.
[2020-05-03] MEDS: rivaroxaban 10 mg Tablet 20 MG PO (16:24)
[2020-05-03 16:55] LABS: HIV 1 & 2 Antibody Non-Reactive (Non-Reactiv); HIV 1 & 2 Antigen Non-Reactive (Non-Reactiv)
[2020-05-03 17:23] LABS: Hepatitis A Antibody IgM Non-Reactive (Nonreactive); Hepatitis B Core AB, Total Reactive (Nonreactive); Hepatitis B Surface AB 7.8 (0-8.5); Hepatitis B Surface Antigen Non-Reactive (Nonreactive); Hepatitis C Virus Antibody Reactive (Nonreactive)
[2020-05-03] MEDS: metoprolol tartrate 25 mg Tablet PO (18:30)
--- NOTE | 2020-05-03 19:56 | PC.NURSE ---
Rounding: Patient up to chair watching television. Patient is calm and cooperative with care. . Denies any pain.
--- NOTE | 2020-05-03 20:30 | PM.PN ---
Subjective Subjective: Interval history: Patient had episode of hypotension his blood pressure is running on the lower side he had good urine output but creatinine increased therefore blood pressure meds and Lasix was held. He is feeling better breathing tavera. Vitals/I&O/Wt Last Vital Signs Temp 98 F 05/03/20 20:00 Pulse 83 05/03/20 20:00 Resp 26 H 05/03/20 20:00 BP 103/83 05/03/20 20:00 Pulse Ox 100 05/03/20 20:00 05/03/20 05/03/20 05/03/20 06:59 14:59 22:59 Intake Total 510 / 856.667 240 / 240 1107 / 1347 Output Total 400 / 400 Balance 510 / 256.667 240 / 240 707 / 947 Weight last 48 hrs Weight 240 lb Physical Exam Narrative: EXAM NARRATIVE: GENERAL: Patient is alert, awake and oriented x3. NECK: No jugular vein distension. HEENT: No cyanosis. No icterus. No pallor. HEART: Regular S1 and S2. No murmur, rub or gallop. LUNGS: Clear to auscultate bilaterally. ABDOMEN: Soft, nontender and nondistended. Positive bowel sounds. No guarding, rebound or tenderness. CENTRAL NERVOUS SYSTEM: Grossly nonfocal. EXTREMITIES: Lower extremities with 1+ edema bilaterally. Pulses palpable in the lower extremities, only posterior tibial. Dusky appearing feet but good capillary refill temperature is normal feet are moist denies any pain no ulcer Data : 05/03/20 04:22 05/03/20 04:22 Micro: Microbiology 05/02/20 18:30 Blood Culture - Preliminary Blood NEGATIVE TO DATE 05/02/20 11:44 Blood Culture - Preliminary Blood NEGATIVE TO DATE A&P Assessment and plan (1) Paroxysmal atrial fibrillation with RVR: He is off Cardizem drip metoprolol was reduced due to hypotension he is in rate controlled. Continue anticoagulation Status: Acute (2) Acute exacerbation of CHF (congestive heart failure): Due to hypotension diuretics is on hold he was given little bit of fluid we will reassess him tomorrow he may require dobutamine for possible diuresis Status: Deleted (3) Peripheral Vascular Disease: Patient has underlying peripheral arterial disease however it does not appear to be symptomatic or in the category of critical limb ischemia. Hopefully with diuresis and improvement of lower extremity edema feet will look better. He has good dopplerable posterior tibial pulse. We will reassess with ABIs once lower extremity edema will subside. Status: Acute Attestations Medical Necessity Statement*: Patient require continuation of hospitalization for above defined care. Coding Level of Care Code Established Pt Acute Youth Advocate for Ckg Fwd Patient Type Established History Detailed Exam Detailed Medical Decision Making Moderate Complexity Diagnoses Paroxysmal atrial fibrillation with RVR I48.0 Acute exacerbation of CHF (congestive heart failure) I50.9 Peripheral Vascular Disease I73.9
[2020-05-03] MEDS: trazodone 50 mg Tablet 25 MG PO (21:49)
[2020-05-04] VITALS (15 sets, daily range): BP systolic 100–130; BP diastolic 60–84; PULSE 80–110; RESP 18–96; TEMP 36.6–36.9; O2SAT 94–99
[2020-05-04 05:07] LABS: Basophils # 0.1 10^3/uL (0.0-0.1); Basophils % 0.7 %; Eosinophils # 0.1 10^3/uL (0.0-0.8); Eosinophils % 1.5 %; Hemoglobin 11.3 g/dL (11.7-16.6); Lymphocytes # 2.1 10^3/uL (0.8-4.8); Lymphocytes % 28.8 %; Mean Corpuscular HGB Conc 31.4 g/dL (30.0-36.0); Mean Corpuscular Hemoglobin 32.8 pg (28.0-34.0); Mean Corpuscular Volume 104.7 fL (80-94); Mean Platelet Volume 11.6 fL (7.4-10.4); Monocytes # 0.8 10^3/uL (0.2-0.9); Monocytes % 10.6 %; Neutrophils # 4.33 10^3/uL (1.8-7.7); Neutrophils % 58.1 %; Nucleated Red Blood Cells % 0 %; Platelet Count 156 10^3/cmm (130-400); Red Blood Count 3.44 10^6/uL (4.1-5.3); Red Cell Distribution Width 15.4 % (12.1-15.1); White Blood Count 7.4 10^3/uL (4.0-10.0)
[2020-05-04 05:43] LABS: Alanine Aminotransferase 210 U/L (0-41); Albumin Level 3.2 g/dL (3.5-5.2); Alkaline Phosphatase 67 IU/L (40-130); Anion Gap 17.6 (5-19); Aspartate Amino Transferase 295 U/L (0-40); Blood Urea Nitrogen 38 mg/dL (8-23); Calcium 8.9 mg/dL (8.5-10.5); Carbon Dioxide 22 mmol/L (22-29); Chloride 99 mmol/L (98-107); Globulin 3.2 g/dL (1.3-4.6); Glucose 104 mg/dL (65-115); Osmolality Calculated 289 mOsm/kg (285-295); Potassium 3.6 mmol/L (3.5-5.1); Sodium 135 mmol/L (136-145); Total Bilirubin 0.7 mg/dL (0.15-1.2); Total Protein 6.4 g/dL (6.6-8.7)
[2020-05-04 05:44] LABS: Chol HDL Ratio 4.04 mg/dL (1.0-5.00); Cholesterol 113 mg/dL (0-200); HDL Cholesterol 28 mg/dL (60-100); LDL Cholesterol Calculated 68 mg/dL (50-129); Triglycerides 83 mg/dL (0-150); VLDL Cholestrol Calculation 17 mg/dL (0-30)
[2020-05-04] MEDS: sodium chloride 0.9% 1,000 ML 50 ML IV (08:15)
[2020-05-04] MEDS: rivaroxaban 10 mg Tablet 20 MG PO (08:17)
[2020-05-04] MEDS: aspirin 81 mg EC Tablet PO (08:17)
[2020-05-04] MEDS: metoprolol tartrate 25 mg Tablet PO ×2 (08:18→17:08)
--- NOTE | 2020-05-04 10:38 | PM.PN ---
Subjective Subjective: Interval history: No acute events overnight. Patient has remained hemodynamically stable with heart rate less than 100. He is complaining of throbbing pain in bilateral feet going from toes up to calf muscles. Denies any chest pain, nausea, vomiting or difficulty in breathing along with any palpitations. Denies any numbness in feet. Discussed in detail regarding the diagnosis of hepatitis B and hepatitis C. He states he is not aware of hepatitis in the past. Also discussed regarding blood work results for liver function and kidney function today. Vitals/I&O/Wt Last Vital Signs Temp 98.1 F 05/04/20 07:18 Pulse 95 05/04/20 07:18 Resp 24 H 05/04/20 07:18 BP 108/84 05/04/20 07:18 Pulse Ox 96 05/04/20 07:18 05/03/20 05/04/20 05/04/20 22:59 06:59 14:59 Intake Total 1257 / 1497 150 / 1647 1118.333 / 1118.333 Output Total 400 / 400 150 / 550 100 / 100 Balance 857 / 1097 0 / 1097 1018.333 / 1018.333 Weight last 48 hrs Weight 108.862 kg Physical Exam Narrative: EXAM NARRATIVE: General: No acute distress, AO x3, mildly distended, morbidly obese HEENT: PERRLA, pupils bilaterally equal and reactive Chest: Normal vesicular breath sounds, decreased breath sounds bilateral lower zone with occasional fine crackles, equal good air entry bilaterally CVS: S1-S2 regular, soft pansystolic murmur at apex 2/6, no tachycardia, no gallops, no rubs Abdomen: Soft, nontender, no organomegaly, bowel sounds present Neuro: No focal deficits, no facial deformity, AO x3, power 5/5 in all limbs Extremities: Bilateral erythema without any rise in local temperature in bilateral legs up to midcalf without any blisters. Second third and fourth toe on the right leg mildly purple in color, without any open wounds, cold to touch as compared to other part of the foot along with erythema present in the foot bilaterally. Bilateral foot cooler to touch as compared to the other part of the leg. Anterior tibial dopplerable bilaterally, posterior tibial not palpable Data : 05/04/20 04:34 05/04/20 04:34 Micro: Microbiology 05/02/20 18:30 Blood Culture - Preliminary Blood NEGATIVE TO DATE 05/02/20 11:44 Blood Culture - Preliminary Blood NEGATIVE TO DATE A&P Assessment and plan (1) Paroxysmal atrial fibrillation with RVR: Status: Acute (2) Combined systolic and diastolic congestive heart failure, NYHA class 3: Status: Acute (3) BLAIR (acute kidney injury): Status: Acute (4) Elevated liver enzymes: Status: Acute (5) Peripheral Vascular Disease: Status: Acute (6) Venous stasis dermatitis: Status: Acute (7) Blue toes: Reports he has recurrent blue toes on and off whenever he is off medications and currently has been happening for 3 to 4 days prior to admission, lateral 3 toes on the right foot appear blue. Sensation appears intact. He is afebrile, and has not been taking his Xarelto, discussed with him possibility of embolic disease, thrombus, versus plaque with blue toe syndrome, as he does have risk factors for cardiovascular disease. No signs of sepsis. Plan: At this time will anticoagulate. X-ray obtained, no fractures noted. Neurovascular checks. Appreciate interventional cardiology assessment. Status: Acute (8) Non-compliant behavior: Status: Acute (9) Smoking addiction: Discussed smoking cessation for 4 minutes. He states he understands that he needs to quit. Says that he had quit entirely in the past, but recently has been more stressed and has been taking occasional cigarettes. Will provide nicotine replacement as needed while in the hospital. Continue to encourage cessation. Will need additional evaluation of his anxiety and depression. Status: Acute (10) Anxiety: Would benefit from follow-up with [facility] after discharge. Has been recently having more anxiety, also depression. Denies any suicidal ideation. Request for Xanax which she used to take for anxiety. Monitor for any changes in symptoms. Consider initiation of additional therapy if remains stable from cardiac perspective. Status: Acute (11) Hepatitis B: Status: Acute (12) Hepatitis C: Status: Acute Additional A&P Information Paroxysmal A. fib: Patient has a history of atrial fibrillation as an outpatient. Not on any medications for last 1 week at least because of noncompliance. Patient was on Cardizem drip and started on oral metoprolol yesterday. Last night developed hypotension. Rate controlled at present. For now continue with metoprolol 25 mg twice daily. Continue with telemetry. Jairon vas score 4. Continue with home dose of Xarelto. Acute on chronic congestive heart failure: Combined systolic and diastolic type. Echocardiogram done earlier in this admission consistent with EF of 38% with grade 3 diastolic dysfunction with thickened mitral and aortic valves with moderate mitral regurgitation, trace aortic insufficiency, moderate TR with RVSP of 44.8 and moderate biatrial enlargement. Daily weights. Strict input output charting. Hypotension: Most likely because of overmedication from Cardizem, metoprolol and Lasix at the same time. Blood pressures better now. Keep mean pressures over 65 mmHg with goal blood pressure less than 140/90 mmHg.. We will continue to monitor. If patient continues to have further episodes of hypotension will most likely need dobutamine versus midodrine. BLAIR: Renal function worsening today. Going up to 2.8. Most likely because of hypotension last night. Baseline creatinine around 1.1 in the system.Hold off on any further diuresis and lisinopril for now. Catheterize patient for strict urine output charting. Sent for urinalysis, urine lites, urine eosinophils, urine creatinine. Will do renal ultrasound to rule out obstructive uropathy and renal Doppler to rule out renal artery stenosis though unlikely but patient has extensive history of peripheral arterial disease. Normal saline at 100 cc/h. We will continue to monitor for fluid overload. If patient's urine output does not improve by tomorrow will most likely have to start him on a dobutamine drip along with diuresis with Lasix. Case discussed with Dr. Salazar. Greatly appreciate recommendations. Hepatitis B/hepatitis C/elevated liver enzymes: Most likely because of shock liver from hypotension. HIV negative. We will check hepatitis C viral load. Hydration as above while watching for fluid overload. We will continue to monitor. Whole abdominal ultrasound to rule out liver cirrhosis or any other vasculopathy. Peripheral vascular disease: TBI results appreciated. Suggestive of mild to moderate peripheral arterial disease. Continue with aspirin and Xarelto as above. For now hold off on statins because of elevated liver enzymes. HbA1c results appreciated. Discussed in detail regarding need of smoking cessation. Nicotine gums ordered. Plan to reassess LIZZ once lower extremity swelling subsides a little bit. Lack of adherence with medical therapy: He says his medications got wet, and because of that has not been taking them, he says intermittently only been taking Xarelto. Looking through his bottles many of them were empty and filled in February. He states he does not currently see a primary care provider. Full code. Ramón will also help with DVT prophylaxis. Cardiac diet. Attestations Medical Necessity Statement*: Patient needs continued hospitalization for management of acute on chronic congestive heart failure, in setting of cardiogenic shock worsening BLAIR, elevated liver enzymes Time Spent in Patient Care: Greater than 35 minutes (>than 50% of time spent in counselling and/or direct pt care on unit). Coding Level of Care Code Acute Student Services Vice President for Prabhu Coellod Diagnoses Paroxysmal atrial fibrillation with RVR I48.0 Combined systolic and diastolic congestive heart failure, NYHA class 3 I50.40 BLAIR (acute kidney injury) N17.9 Elevated liver enzymes R74.8 Peripheral Vascular Disease I73.9 Venous stasis dermatitis I87.2 Blue toes R23.0 Non-compliant behavior R46.89 Smoking addiction F17.200 Anxiety F41.9 Hepatitis B B19.10 Hepatitis C B19.20
--- NOTE | 2020-05-04 11:20 | PC.NURSE ---
Verbal order received from Dr. Salazar to increase fluid rate to 100 ml/hr, RBVO. Nurse to continue to monitor.
--- NOTE | 2020-05-04 11:30 | PC.NURSE ---
Verbal order received from Dr. Banda to administer 250 ml NS bolus over 1 hour, then continue IV fluids at 100 ml/hr. RBVO. See IV titration sheet.
[2020-05-04 12:53] LABS: Bilirubin Urine Neg (Negative); Blood Urine Neg (Negative); Glucose Urine UA Norm (Normal); Ketones Urine Negative (Negative); Leukocyte Esterase Urine Negative (Negative); Nitrate Urine Negative (Negative); Protein Urine Trace (Negative); Urine Appearance Clear (CLEAR); Urine Color Yellow (Yellow); Urobilinogen Urine 1 mg/dL (Negative)
[2020-05-04 13:09] LABS: Bacteria Urine 1+ /hpf; Mucus Urine TRACE /hpf; Squamous Epithelial Cell Urine 0-4 /hpf (0-5)
[2020-05-04 13:10] LABS: Add Urine Culture? No; Amorphous Sediment Urine TRACE /hpf
[2020-05-04 13:33] LABS: Potassium, Radom Urine 30 mmol/L; Urine Creatinine 163 mg/dL (39-259); Urine Random Sodium 25 mmol/L
[2020-05-04 14:01] LABS: Urine Random Chloride < 10 mmol/L
[2020-05-04 15:50] LABS: Eosinophil Urine No Eosinophils Seen; Urine Eosinophil Count 0 (0-0)
--- NOTE | 2020-05-04 16:55 | PC.NURSE ---
Dr. Banda notified that patient BP is 100/67, HR 90s-100s. Physician gave verbal order to continue with administration of metoprolol. RBVO.
[2020-05-04] MEDS: TRAMadol 50 mg Tablet PO (17:08)
--- NOTE | 2020-05-04 18:09 | PC.RESP ---
Smoking Cessation information sent to patient.
[2020-05-04] MEDS: sodium chloride 0.9% 1,000 ML 100 ML IV (18:12)
--- NOTE | 2020-05-04 19:24 | P.PN_ITS ---
Subjective Subjective: Interval history: Patient remains anuric despite of fluid challenge and hypotensive with borderline low blood pressure. Vitals/I&O/Wt Last Vital Signs Temp 98.2 F 05/04/20 15:19 Pulse 80 05/04/20 15:19 Resp 23 H 05/04/20 15:19 BP 100/67 05/04/20 15:19 Pulse Ox 99 05/04/20 15:19 05/04/20 05/04/20 05/04/20 06:59 14:59 22:59 Intake Total 150 / 1647 1758.333 / 1758.333 835 / 2593.333 Output Total 150 / 550 315 / 315 150 / 465 Balance 0 / 1097 1443.333 / 1443.333 685 / 2128.333 Physical Exam Narrative: EXAM NARRATIVE: GENERAL: Patient is alert, awake and oriented x3. NECK: No jugular vein distension. HEENT: No cyanosis. No icterus. No pallor. HEART: Regular S1 and S2. No murmur, rub or gallop. LUNGS: Clear to auscultate bilaterally. ABDOMEN: Soft, nontender and nondistended. Positive bowel sounds. No guarding, rebound or tenderness. CENTRAL NERVOUS SYSTEM: Grossly nonfocal. EXTREMITIES: Lower extremities with 1+ edema bilaterally. Pulses palpable in the lower extremities, only posterior tibial. Dusky appearing feet but good capillary refill temperature is normal feet are moist denies any pain no ulcer Urinary Catheter Management^: Emanuel Latex: Cath Placed During This Visit: yes Urinary Catheter Date of Insertion: 05/04/20 Urinary Catheter Time of Insertion: 10:40 Data : 05/04/20 04:34 05/04/20 04:34 Micro: Microbiology 05/02/20 18:30 Blood Culture - Preliminary Blood NEGATIVE TO DATE 05/02/20 11:44 Blood Culture - Preliminary Blood NEGATIVE TO DATE A&P Assessment and plan (1) Paroxysmal atrial fibrillation with RVR: Rate controlled. Continue anticoagulation Status: Acute (2) Acute exacerbation of CHF (congestive heart failure): It appeared to me that patient has moved towards cardiorenal shutdown, we have given IV fluid with fluid challenge of more than 2600 cc, so far patient appeared to be deteriorated at this point I will stop IV fluid start dobutamine and diuresis with 40 mg of IV Lasix every 6-8 hours. If requires further blood pressure I may will use Levophed. Status: Deleted (3) Peripheral Vascular Disease: Patient has underlying peripheral arterial disease however it does not appear to be symptomatic or in the category of critical limb ischemia. Hopefully with diuresis and improvement of lower extremity edema feet will look better. He has good dopplerable posterior tibial pulse. We will reassess with ABIs once lower extremity edema will subside. Status: Acute Attestations Medical Necessity Statement*: Patient require continuation hospitalization for above defined care. Coding Level of Care Code Established Pt Acute Supervisor Engine Assembly for Chg Fwd Patient Type Established History Expanded Problem Focused Exam Expanded Problem Focused Medical Decision Making Moderate Complexity Diagnoses Paroxysmal atrial fibrillation with RVR I48.0 Acute exacerbation of CHF (congestive heart failure) I50.9 Peripheral Vascular Disease I73.9
[2020-05-04] MEDS: DOBUTamine drip 500 MG/250 ML PREMIX 16.3 MG IV (19:29)
[2020-05-04] MEDS: FUROsemide 10 mg/mL SDV 4mL 40 MG IVP (20:32)
[2020-05-04] MEDS: ALPRAZolam 0.5 mg Tablet PO (23:34)
[2020-05-05] VITALS (38 sets, daily range): BP systolic 81–143; BP diastolic 48–89; PULSE 20–114; RESP 16–35; TEMP 36.5–36.8; O2SAT 88–99; BMI 43.2
[2020-05-05] MEDS: FUROsemide 10 mg/mL SDV 4mL 40 MG IVP ×2 (04:25→16:51)
[2020-05-05 05:22] LABS: Basophils % 0.5 %; Eosinophils # 0.1 10^3/uL (0.0-0.8); Eosinophils % 1.1 %; Hematocrit 36.1 % (42.0-52.0); Hemoglobin 11.4 g/dL (11.7-16.6); Lymphocytes # 1.5 10^3/uL (0.8-4.8); Lymphocytes % 18.1 %; Mean Corpuscular HGB Conc 31.6 g/dL (30.0-36.0); Mean Corpuscular Hemoglobin 32.9 pg (28.0-34.0); Mean Corpuscular Volume 104.3 fL (80-94); Mean Platelet Volume 11.8 fL (7.4-10.4); Monocytes # 0.9 10^3/uL (0.2-0.9); Monocytes % 11.1 %; Neutrophils # 5.65 10^3/uL (1.8-7.7); Neutrophils % 68.7 %; Nucleated Red Blood Cells % 0 %; Platelet Count 142 10^3/cmm (130-400); Red Blood Count 3.46 10^6/uL (4.1-5.3); Red Cell Distribution Width 15.2 % (12.1-15.1); White Blood Count 8.2 10^3/uL (4.0-10.0)
[2020-05-05 06:00] LABS: Alanine Aminotransferase 215 U/L (0-41); Albumin Level 3.3 g/dL (3.5-5.2); Alkaline Phosphatase 69 IU/L (40-130); Anion Gap 15.2 (5-19); Aspartate Amino Transferase 185 U/L (0-40); Blood Urea Nitrogen 33 mg/dL (8-23); Calcium 8.9 mg/dL (8.5-10.5); Carbon Dioxide 24 mmol/L (22-29); Chloride 100 mmol/L (98-107); Globulin 3.1 g/dL (1.3-4.6); Glomerular Filtration Rate 35.6 mL/min (90-130); Glucose 95 mg/dL (65-115); Osmolality Calculated 289 mOsm/kg (285-295); Potassium 3.2 mmol/L (3.5-5.1); Sodium 136 mmol/L (136-145); Total Bilirubin 0.7 mg/dL (0.15-1.2); Total Protein 6.4 g/dL (6.6-8.7)
--- NOTE | 2020-05-05 06:00 | US_ITS ---
WS: [id number] Complete ABDOMINAL ULTRASOUND HISTORY: hepatitis positive, ? Cirrhosis, elevated liver enzymes, COMPARISON: None available. Liver: 18.4 cm in length. Mildly enlarged liver. Heterogeneous echotexture without a focal mass. The liver is poorly visualized. No bile duct dilatation. Gallbladder: Normally distended with no gallstones, wall thickening or pericholecystic fluid. Gallbladder wall thickness: 0.3 cm. Pancreas: Not visualized. CBD: 0.5 cm. Right kidney: 11.9 cm x 6.1 cm x 7.8 cm. No mass, cortical thickening or hydronephrosis. Left kidney: 12.2 cm x 6.9 cm x 6.4 cm. Kidney is very poorly visualized. No hydronephrosis or large mass. Spleen: Not visualized. Aorta and IVC are poorly visualized. No ascites. US/US abdomen complete* [id number] IMPRESSION: 1. Limited evaluation of the abdominal structures due to body habitus. 2. Negative gallbladder. 3. Incomplete evaluation of the liver. There are changes of hepatic steatosis and hepatocellular disease. 4. Spleen is not visualized and the LEFT kidney and pancreas are poorly visual ized.
--- NOTE | 2020-05-05 06:00 | USCV_ITS ---
Abraham Newton Age: 65 Gender: M : 1955 Exam Date: 05/05/2020 06:46 Ordering Phys: Carlos Banda MD Technologist: Jenae Shelton Exam Location: [facility] [place]_ Indication: STENOSIS Aortic Velocity @ SMA (cm/s) 90.2 RIGHT KIDNEY LEFT KIDNEY Velocity (cm/s) Velocity (cm/s) Sys/Mattson Sys/Mattson Resistive Index Resistive Index 47.9 / 9.8 0.79 Proximal Renal Artery / 60.2 / 8.6 0.86 Mid Renal Artery / 43.6 / 8.6 0.80 Distal Renal Artery / 31.0 / 11.3 0.63 Hilar / 23.3 / 8.4 0.64 Upper Pole / 22.1 / 5.9 0.73 Mid Pole / 27.5 / 7.8 0.72 Lower Pole / 0.70 Renal Aortic Ratio Accleration Index (cm/sec2) 404.00 Hilar 759.00 Upper Pole 395.00 Mid Pole 221.00 Lower Pole 114.7 Kidney Length (mm) 136.7 FINDINGS No comparison. No evidence of abdominal aortic aneurysm. There is no evidence of hemodynamically significant right renal artery stenosis. Normal size kidney with no obstruction. The left renal artery could not be adequately visualized to comment on the present or absence of stenosis. CONCLUSIONS No right renal artery stenosis. Unsuccessful evaluation of left renal artery due to body habitus. Dr. Toya Odell DO (Electronically Signed) Final Date: 05 May 2020 09:44 S
--- NOTE | 2020-05-05 07:30 | PC.NURSE ---
Dr. Salazar updated on patient condition and labs via telephone. Physician gave telephone order to continue current Dobutamine and lasix administration schedule. Give 20 meq KCl PO now and 20 meq KCl PO in 2 hours. RBTO
[2020-05-05] MEDS: rivaroxaban 10 mg Tablet 20 MG PO (08:15)
[2020-05-05] MEDS: potassium chloride ER 10 mEq Tablet 20 MEQ PO ×3 (08:15→17:00)
[2020-05-05] MEDS: aspirin 81 mg EC Tablet PO (08:15)
[2020-05-05] MEDS: metoprolol tartrate 25 mg Tablet PO (08:16)
[2020-05-05] MEDS: DOBUTamine drip 500 MG/250 ML PREMIX 16.3 MG IV (09:14)
[2020-05-05] MEDS: TRAMadol 50 mg Tablet PO (10:36)
--- NOTE | 2020-05-05 12:13 | DCPLANNER ---
IMM completed on 05/05/2020 @ 1204pm. Pt was given a copy of his rights.
--- NOTE | 2020-05-05 12:42 | PC.NURSE ---
Dr. Salazar notified at 1150 that patient has had 800 urine output so far this shift. BP 97/72. Telephone order received to decrease Lasix to 40 mg IVP BID. Physician will watch urine output overnight and adjust medications accordingly. Telephone order received to administer KCl PO [address] Banda updated on medication changes. Physician requests STAT BMP. RBVO.
[2020-05-05 13:41] LABS: Anion Gap 13.8 (5-19); Blood Urea Nitrogen 32 mg/dL (8-23); Calcium 8.8 mg/dL (8.5-10.5); Carbon Dioxide 27 mmol/L (22-29); Chloride 99 mmol/L (98-107); Glomerular Filtration Rate 46.8 mL/min (90-130); Glucose 137 mg/dL (65-115); Osmolality Calculated 291 mOsm/kg (285-295); Potassium 3.8 mmol/L (3.5-5.1); Sodium 136 mmol/L (136-145)
--- NOTE | 2020-05-05 14:40 | P.PN_ITS ---
Subjective Subjective: Interval history: Last 24 hours patient was catheterized and given a fluid challenge which he failed as his urine output continued to remain low after which he was started on a dobutamine drip last evening along with IV Lasix to which he has responded remarkably and has had up to 5 L of urine output. On examination patient states he is feeling better, states his legs are feeling better denies any nausea, vomiting, headache. Telemetry has remained stable without any ectopy. He maintains saturation on room air. Has remained afebrile. On examination blood pressure borderline but mean arterial pressure still over 65. There is post feel warm to touch today which we have different than yesterday. Vitals/I&O/Wt Last Vital Signs Temp 97.7 F 05/05/20 10:42 Pulse 90 05/05/20 14:00 Resp 23 H 05/05/20 14:00 BP 113/48 05/05/20 14:00 Pulse Ox 96 05/05/20 14:00 05/04/20 05/05/20 05/05/20 22:59 06:59 14:59 Intake Total 1083.333 / 2841.666 504.125 / 504.125 Output Total 150 / 465 2800 / 3265 2450 / 2450 Balance 933.333 / 2376.666 -2800 / -423.334 -1945.875 / -1945.875 Weight last 48 hrs Weight 128.82 kg Physical Exam Narrative: EXAM NARRATIVE: General: No acute distress, AO x3, mildly distended, morbidly obese HEENT: PERRLA, pupils bilaterally equal and reactive Chest: Normal vesicular breath sounds, decreased breath sounds bilateral lower zone with occasional fine crackles, equal good air entry bilaterally CVS: S1-S2 regular, soft pansystolic murmur at apex 2/6, no tachycardia, no gallops, no rubs Abdomen: Soft, nontender, no organomegaly, bowel sounds present Neuro: No focal deficits, no facial deformity, AO x3, power 5/5 in all limbs Extremities: Bilateral erythema without any rise in local temperature in bilateral legs up to midcalf without any blisters. Second third and fourth toe on the right leg mildly purple in color, without any open wounds, cold to touch as compared to other part of the foot along with erythema present in the foot bilaterally. Bilateral foot cooler to touch as compared to the other part of the leg. Anterior tibial dopplerable bilaterally, posterior tibial not palpable Urinary Catheter Management^: Emanuel Latex: Cath Placed During This Visit: yes Reason for Continuing Indwelling Catheter: Accurate Measurement of Urinary Outp ut in Critically Ill Patients Urinary Catheter Date of Insertion: 05/04/20 Urinary Catheter Time of Insertion: 10:40 Data : 05/05/20 04:33 05/05/20 13:01 A&P Assessment and plan (1) Combined systolic and diastolic congestive heart failure, NYHA class 3: Status: Acute (2) Cardiogenic shock: Status: Acute (3) Cardiorenal syndrome: Status: Acute (4) BLAIR (acute kidney injury): Status: Acute (5) Paroxysmal atrial fibrillation with RVR: Status: Acute (6) Elevated liver enzymes: Status: Acute (7) Peripheral Vascular Disease: Status: Acute (8) Venous stasis dermatitis: Status: Acute (9) Blue toes: Reports he has recurrent blue toes on and off whenever he is off medications and currently has been happening for 3 to 4 days prior to admission, lateral 3 toes on the right foot appear blue. Sensation appears intact. He is afebrile, and has not been taking his Xarelto, discussed with him possibility of embolic disease, thrombus, versus plaque with blue toe syndrome, as he does have risk factors for cardiovascular disease. No signs of sepsis. Plan: At this time will anticoagulate. X-ray obtained, no fractures noted. Neurovascular checks. Appreciate interventional cardiology assessment. Status: Acute (10) Hepatitis B: Status: Acute (11) Hepatitis C: Status: Acute (12) Anxiety: Would benefit from follow-up with [facility] after discharge. Has been recently having more anxiety, also depression. Denies any suicidal ideation. Request f or Xanax which she used to take for anxiety. Monitor for any changes in symptoms. Consider initiation of additional therapy if remains stable from cardiac perspective. Status: Acute (13) Smoking addiction: Discussed smoking cessation for 4 minutes. He states he understands that he needs to quit. Says that he had quit entirely in the past, but recently has been more stressed and has been taking occasional cigarettes. Will provide nicotine replacement as needed while in the hospital. Continue to encourage cessation. Will need additional evaluation of his anxiety and depression. Status: Acute (14) Non-compliant behavior: Status: Acute Additional A&P Information Acute on chronic congestive heart failure: Combined systolic and diastolic type. Echocardiogram done earlier in this admission consistent with EF of 38% with grade 3 diastolic dysfunction with thickened mitral and aortic valves with moderate mitral regurgitation, trace aortic insufficiency, moderate TR with RVSP of 44.8 and moderate biatrial enlargement. Patient has put out at least 5 L of urine since dobutamine drip was started. Blood pressure borderline at present. Decrease the Lasix frequency to 40 mg IV twice daily. Daily weights. Strict input output charting. Fluid restriction up to 1800 cc. Cardiogenic shock: Continue with dobutamine drip at present. We will try to keep mean arterial pressure over 65 mmHg. If required will start patient on Levophed. Hold off on beta-dorian for now as patient is on dobutamine. Paroxysmal A. fib: Patient has a history of atrial fibrillation as an ou tpatient. Not on any medications for last 1 week at least because of noncompliance. Rate controlled at present. Continue with telemetry. Jairon vas score 4. Continue with home dose of Xarelto. BLAIR: Resolving. Creatinine 1.8 today. Most likely secondary to cardiorenal syndrome. Urinalysis appreciated and Fena consistent with prerenal. Repeat BMP at 2 PM to monitor potassium levels. Replete potassium for now. Continue with Emanuel catheterization Case discussed with Dr. Salazar. Greatly appreciate recommendations. Hepatitis B/hepatitis C/elevated liver enzymes: Most likely because of shock li julieta from hypotension versus congestive hepatomegaly. HIV negative. We will check hepatitis C viral load. Continue to monitor. Peripheral vascular disease: TBI results appreciated. Suggestive of mild to moderate peripheral arterial disease. Continue with aspirin and Xarelto as above. For now hold off on statins because of elevated liver enzymes. HbA1c results appreciated. Discussed in detail regarding need of smoking cessation. Nicotine gums ordered. Plan to reassess LIZZ once lower extremity swelling subsides a little bit. Lack of adherence with medical therapy: He says his medications got wet, and because of that has not been taking them, he says intermittently only been taking Xarelto. Looking through his bottles many of them were empty and filled in February. He states he does not currently see a primary care provider. Full code. Xarelto will also help with DVT prophylaxis. Cardiac diet. Attestations Medical Necessity Statement*: Patient needs further hospitalization for management of cardiogenic shock, acute on chronic mixed congestive heart failure, resolving BLAIR and improving elevated liver enzymes, peripheral vascular disease. Time Spent in Patient Care: Greater than 35 minutes (>than 50% of time spent in counselling and/or direct pt care on unit) . Coding Level of Care Code Acute Commodity Manager for Ckg Fwd Diagnoses Combined systolic and diastolic congestive heart failure, NYHA class 3 I50.40 Cardiogenic shock R57.0 Cardiorenal syndrome I13.10 BLAIR (acute kidney injury) N17.9 Paroxysmal atrial fibrillation with RVR I48.0 Elevated liver enzymes R74.8 Peripheral Vascular Disease I73.9 Venous stasis dermatitis I87.2 Blue toes R23.0 Hepatitis B B19.10 Hepatitis C B19.20 Anxiety F41.9 Smoking addiction F17.200 Non-compliant behavior R46.89
[2020-05-05] MEDS: trazodone 50 mg Tablet 25 MG PO (20:45)
[2020-05-05] MEDS: ALPRAZolam 0.5 mg Tablet PO (20:45)
--- NOTE | 2020-05-05 20:45 | PM.PN ---
Subjective Subjective: Interval history: Patient diuresed well overnight after institution of dobutamine and Lasix Vitals/I&O/Wt Last Vital Signs Temp 98.2 F 05/05/20 19:22 Pulse 108 H 05/05/20 19:22 Resp 18 05/05/20 19:22 BP 119/81 05/05/20 19:22 Pulse Ox 98 05/05/20 19:22 05/05/20 05/05/20 05/05/20 06:59 14:59 22:59 Intake Total 504.125 / 504.125 Output Total 2800 / 3265 2450 / 2450 900 / 3350 Balance -2800 / -423.334 -1945.875 / -1945.875 -900 / -2845.875 Weight last 48 hrs Weight 284 lb Physical Exam Narrative: EXAM NARRATIVE: GENERAL: Patient is alert, awake and oriented x3. NECK: No jugular vein distension. HEENT: No cyanosis. No icterus. No pallor. HEART: Regular S1 and S2. No murmur, rub or gallop. LUNGS: Decreased breath sounds bilaterally. ABDOMEN: Soft, nontender and nondistended. Positive bowel sounds. No guarding, rebound or tenderness. CENTRAL NERVOUS SYSTEM: Grossly nonfocal. EXTREMITIES: Lower extremities with 1+ edema bilaterally. Pulses dopplerable with good color Urinary Catheter Management^: Emanuel Latex: Cath Placed During This Visit: yes Reason for Continuing Indwelling Catheter: Accurate Measurement of Urinary Output in Critically Ill Patients Urinary Catheter Date of Insertion: 05/04/20 Urinary Catheter Time of Insertion: 10:40 Data : 05/05/20 04:33 05/05/20 13:01 A&P Assessment and plan (1) Paroxysmal atrial fibrillation with RVR: Rate controlled. We will continue anticoagulation with Status: Acute (2) Acute exacerbation of CHF (congestive heart failure): Continue dobutamine continue diuretics which we will back off to 40 mg twice daily. Will replenish potassium. Status: Deleted (3) Peripheral Vascular Disease: Both look good in color warm moist with dopplerable anterior tibial. Denies any complaint. Status: Acute Attestations Medical Necessity Statement*: Patient require continuation hospitalization for above defined care. Coding Level of Care Code Established Pt Acute Securities And Real Estate Director for Chg Fwd Patient Type Established History Expanded Problem Focused Exam Expanded Problem Focused Medical Decision Making Moderate Complexity Diagnoses Paroxysmal atrial fibrillation with RVR I48.0 Acute exacerbation of CHF (congestive heart failure) I50.9 Peripheral Vascular Disease I73.9
--- NOTE | 2020-05-05 21:08 | PC.NURSE ---
Patient has no complaints at this time. Will monitor.
[2020-05-06] VITALS (8 sets, daily range): BP systolic 102–152; BP diastolic 53–101; PULSE 100–132; RESP 14–26; TEMP 36.4–36.7; O2SAT 93–98
[2020-05-06] MEDS: DOBUTamine drip 500 MG/250 ML PREMIX 16.3 MG IV ×2 (00:06→14:58)
--- NOTE | 2020-05-06 02:23 | PC.NURSE ---
Dr. Salazar notified of heart rate ranging 110-130 A-fib. Ordered to give 25 mg Metoprolol PO.
[2020-05-06] MEDS: metoprolol tartrate 25 mg Tablet PO (02:47)
[2020-05-06] MEDS: FUROsemide 10 mg/mL SDV 4mL 40 MG IVP ×2 (02:47→15:00)
[2020-05-06 05:44] LABS: Basophils % 0.6 %; Eosinophils # 0.1 10^3/uL (0.0-0.8); Hematocrit 37.7 % (42.0-52.0); Lymphocytes # 1.4 10^3/uL (0.8-4.8); Mean Corpuscular HGB Conc 31.8 g/dL (30.0-36.0); Mean Corpuscular Hemoglobin 33.2 pg (28.0-34.0); Mean Corpuscular Volume 104.4 fL (80-94); Mean Platelet Volume 11.8 fL (7.4-10.4); Monocytes # 0.7 10^3/uL (0.2-0.9); Monocytes % 10.9 %; Neutrophils # 4.33 10^3/uL (1.8-7.7); Neutrophils % 65.3 %; Nucleated Red Blood Cells % 0 %; Platelet Count 159 10^3/cmm (130-400); Red Blood Count 3.61 10^6/uL (4.1-5.3); Red Cell Distribution Width 15.2 % (12.1-15.1); White Blood Count 6.6 10^3/uL (4.0-10.0)
[2020-05-06 06:25] LABS: Alanine Aminotransferase 177 U/L (0-41); Albumin Level 3.5 g/dL (3.5-5.2); Alkaline Phosphatase 73 IU/L (40-130); Anion Gap 15.4 (5-19); Aspartate Amino Transferase 105 U/L (0-40); Blood Urea Nitrogen 25 mg/dL (8-23); Calcium 9.8 mg/dL (8.5-10.5); Carbon Dioxide 28 mmol/L (22-29); Chloride 100 mmol/L (98-107); Globulin 3.3 g/dL (1.3-4.6); Glomerular Filtration Rate 50.7 mL/min (90-130); Glucose 96 mg/dL (65-115); Osmolality Calculated 294 mOsm/kg (285-295); Potassium 3.4 mmol/L (3.5-5.1); Sodium 140 mmol/L (136-145); Total Bilirubin 0.8 mg/dL (0.15-1.2); Total Protein 6.8 g/dL (6.6-8.7)
[2020-05-06] MEDS: rivaroxaban 10 mg Tablet 20 MG PO (08:45)
[2020-05-06] MEDS: aspirin 81 mg EC Tablet PO (08:45)
[2020-05-06] MEDS: potassium chloride ER 10 mEq Tablet 20 MEQ PO ×3 (08:46→20:14)
[2020-05-06] MEDS: TRAMadol 50 mg Tablet PO (08:47)
--- NOTE | 2020-05-06 11:12 | PC.CHAP ---
Pastoral Care Encounter/Spiritual Assessment Type of Contact [] Declined spinning bath patroller visit [] Patient/Family/Request visit [] Outpatient visit [xx] Follow-up visit [] Physician referral [] Code/Alert [xx] Routine visit [] Staff referral [] Actively dying [] Patient sleeping [] Family support [] [] Out of room [] Palliative care [] [] Receiving care in room [] Pre-surgical visit [] Trauma [xx] Long length of stay [] ICU visit [] Other: Relational/Emotional Strength [xx] Patient feels connected with others/family/visitors/staff [] Distress [] Loneliness/isolation [] Abandonment Spirituality of Patient [xx] Person of Delmi [] Attends Catholic of their Delmi [xx] Believes in Prayer [xx] Reads Bible or Mu-Ism materials [] There are Spiritual issues to be addressed Mission Systems Engineer Interventions [xx] Prayer [xx] Active listening [xx] Non-anxious presence [] Spiritual/emotional support [] Crisis/trauma care [] Spiritual counseling [] Bereavement support [] Provided bereavement packet [] Provided Bible/devotional materials [] Provided toy/stuffed animal, coloring book to patient or family member [] Provided Communion [] Anointing/Wright [] Salvation [xx] Completed spiritual assessment [] Other: Impact on Illness or Injury [] Angry [] Fearful [] Anxious [] Often cries [] Exhaustion [] Unable to work [] Unable to attend yazdanism [] Unable to walk/stand [] Unable to read [] Unable to drive [] Unable to eat/drink [] Unable to sleep [xx] Unable to be with family [] Patient intubated [] Other: Summary Pt and family (son & his family) just moved to [place] to [facility] a few days ago to work with [employer]. 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 They moved from [facility] because it became too expensive and dangerous to live there. Chose [place] because son got position with [employer] and they had visited [place] before and wanted cheaper, safer, country place to live and raise family. Because they just arrived, Pt wanted to ask a lot of questions about area -- what to see and do and what weather is like, etc. Mission Systems Engineer answered his questions as best as possible. Pt is very pleasant gentleman and easy to talk to. Medical staff shortened visit. Time spent with patient 12 minutes Chaplain Audrey Miguel
--- NOTE | 2020-05-06 12:02 | PM.PN ---
Subjective Subjective: Interval history: No acute events overnight. Patient has diuresed well. Complaining of throbbing pain in bilateral feet. Denies nausea, vomiting, headache, dizziness. Hemodynamically has remained stable and afebrile. Labs noted. Vitals/I&O/Wt Last Vital Signs Temp 98.0 F 05/06/20 08:00 Pulse 104 H 05/06/20 08:00 Resp 14 05/06/20 08:00 BP 102/53 05/06/20 08:00 Pulse Ox 97 05/06/20 08:00 05/05/20 05/06/20 05/06/20 22:59 06:59 14:59 Intake Total 242.327 / 746.452 Output Total 900 / 3350 1725 / 5075 Balance -900 / -2845.875 -1482.673 / -4328.548 Weight last 48 hrs Weight 128.82 kg Physical Exam Narrative: EXAM NARRATIVE: General: No acute distress, AO x3, mildly distended, morbidly obese HEENT: PERRLA, pupils bilaterally equal and reactive Chest: Normal vesicular breath sounds, decreased breath sounds bilateral lower zone with occasional fine crackles, equal good air entry bilaterally CVS: S1-S2 regular, soft pansystolic murmur at apex 2/6, no tachycardia, no gallops, no rubs Abdomen: Soft, nontender, no organomegaly, bowel sounds present Neuro: No focal deficits, no facial deformity, AO x3, power 5/5 in all limbs Extremities: Bilateral erythema without any rise in local temperature in bilateral legs up to midcalf without any blisters. Second third and fourth toe on the right leg mildly purple in color, without any open wounds, cold to touch as compared to other part of the foot along with erythema present in the foot bilaterally. Bilateral foot cooler to touch as compared to the other part of the leg. Anterior tibial dopplerable bilaterally, posterior tibial not palpable Urinary Catheter Management^: Emanuel Latex: Cath Placed During This Visit: yes Reason for Continuing Indwelling Catheter: Accurate Measurement of Urinary Output in Critically Ill Patients Urinary Catheter Date of Insertion: 05/04/20 Urinary Catheter Time of Insertion: 10:40 Data : 05/06/20 04:30 05/06/20 04:30 A&P Assessment and plan (1) Combined systolic and diastolic congestive heart failure, NYHA class 3: Status: Acute (2) Cardiogenic shock: Status: Acute (3) Cardiorenal syndrome: Status: Acute (4) BLAIR (acute kidney injury): Status: Acute (5) Paroxysmal atrial fibrillation with RVR: Status: Acute (6) Elevated liver enzymes: Status: Acute (7) Peripheral Vascular Disease: Status: Acute (8) Venous stasis dermatitis: Status: Acute (9) Blue toes: Reports he has recurrent blue toes on and off whenever he is off medications and currently has been happening for 3 to 4 days prior to admission, lateral 3 toes on the right foot appear blue. Sensation appears intact. He is afebrile, and has not been taking his Xarelto, discussed with him possibility of embolic disease, thrombus, versus plaque with blue toe syndrome, as he does have risk factors for cardiovascular disease. No signs of sepsis. Plan: At this time will anticoagulate. X-ray obtained, no fractures noted. Neurovascular checks. Appreciate interventional cardiology assessment. Status: Acute (10) Hepatitis B: Status: Acute (11) Hepatitis C: Status: Acute (12) Anxiety: Would benefit from follow-up with [facility] after discharge. Has been recently having more anxiety, also depression. Denies any suicidal ideation. Request for Xanax which she used to take for anxiety. Monitor for any changes in symptoms. Consider initiation of additional therapy if remains stable from cardiac perspective. Status: Acute (13) Smoking addiction: Discussed smoking cessation for 4 minutes. He states he understands that he needs to quit. Says that he had quit entirely in the past, but recently has been more stressed and has been taking occasional cigarettes. Will provide nicotine replacement as needed while in the hospital. Continue to encourage cessation. Will need additional evaluation of his anxiety and depression. Status: Acute (14) Non-compliant behavior: Status: Acute Additional A&P Information Acute on chronic congestive heart failure: Combined systolic and diastolic type. Echocardiogram done earlier in this admission consistent with EF of 38% with grade 3 diastolic dysfunction with thickened mitral and aortic valves with moderate mitral regurgitation, trace aortic insufficiency, moderate TR with RVSP of 44.8 and moderate biatrial enlargement. Continue Lasix 40 mg IV twice daily. Patient is overall 4 L negative now. Daily weights. Strict input output charting. Fluid restriction up to 1800 cc. Cardiogenic shock: Continue with dobutamine drip at present. We will try to keep mean arterial pressure over 65 mmHg. If required will start patient on Levophed. Hold off on beta-dorian for now as patient is on dobutamine. Paroxysmal A. fib: Patient has a history of atrial fibrillation as an outpatient. Not on any medications for last 1 week at least because of noncompliance. Rate controlled at present. Continue with telemetry. Jairon vas score 4. Continue with home dose of Xarelto. BLAIR: Resolving. Creatinine 1.4 today. Most likely secondary to cardiorenal syndrome. Urinalysis appreciated and Fena consistent with prerenal. Continue with oral potassium supplementation. Case discussed with Dr. Salazar. Greatly appreciate recommendations. Hepatitis B/hepatitis C/elevated liver enzymes: Most likely because of shock liver from hypotension versus congestive hepatomegaly. HIV negative. Liver enzymes downtrending. Peripheral vascular disease: TBI results appreciated. Suggestive of mild to moderate peripheral arterial disease. We will check CPK levels. Continue with aspirin and Xarelto as above. We will restart statins once LFTs near normal. HbA1c results appreciated. Discussed in detail regarding need of smoking cessation. Nicotine gums ordered. Plan to reassess LIZZ once lower extremity swelling subsides a little bit. We will consult with Dr. Salazar when to reassess. Lack of adherence with medical therapy: He says his medications got wet, and because of that has not been taking them, he says intermittently only been taking Xarelto. Looking through his bottles many of them were empty and filled in February. He states he does not currently see a primary care provider. Full code. Xarelto will also help with DVT prophylaxis. Cardiac diet. Attestations Medical Necessity Statement*: Patient needs further hospitalization for management of cardiogenic shock, on dobutamine drip, improving acute on chronic congestive heart failure, resolving BLAIR elevated liver enzymes. Time Spent in Patient Care: Greater than 35 minutes (>than 50% of time spent in counselling and/or direct pt care on unit). Coding Level of Care Code Acute Home Care Attendant for Prabhu Peters Diagnoses Combined systolic and diastolic congestive heart failure, NYHA class 3 I50.40 Cardiogenic shock R57.0 Cardiorenal syndrome I13.10 BLAIR (acute kidney injury) N17.9 Paroxysmal atrial fibrillation with RVR I48.0 Elevated liver enzymes R74.8 Peripheral Vascular Disease I73.9 Venous stasis dermatitis I87.2 Blue toes R23.0 Hepatitis B B19.10 Hepatitis C B19.20 Anxiety F41.9 Smoking addiction F17.200 Non-compliant behavior R46.89
[2020-05-06 13:39] LABS: HEP C RNA Viral Load Quant <1.18 NOT DETECTED Log IU/mL (NOT DETECTED); HEP C RNA Viral Load Quant <15 NOT DETECTED IU/mL (NOT DETECTED)
[2020-05-06 15:37] LABS: Hepatitis B Virus DNA <10 NOT DETECTED IU/mL (NOT DETECTED); Hepatitis B Virus DNA PCR <1.00 NOT DETECTED Log IU/mL (NOT DETECTED)
[2020-05-06 17:59] LABS: Creatine Phosphokinase 54 U/L (39-308)
--- NOTE | 2020-05-06 19:11 | PM.PN ---
Subjective Subjective: Interval history: Continues to diurese well breathing much better however he is complaining regarding toes pain bilaterally. He has good dopplerable anterior posterior tibial and even some digital pulse. He can wiggle his toes but tender to touch Medications: Reviewed: Yes Vitals/I&O/Wt Last Vital Signs Temp 97.6 F 05/06/20 16:00 Pulse 108 H 05/06/20 16:00 Resp 26 H 05/06/20 16:00 BP 136/82 05/06/20 16:00 Pulse Ox 98 05/06/20 16:00 05/06/20 05/06/20 05/06/20 06:59 14:59 22:59 Intake Total 242.327 / 746.452 539.327 / 539.327 Output Total 1725 / 5075 1250 / 1250 1600 / 2850 Balance -1482.673 / -4328.548 -710.673 / -710.673 -1600 / -2310.673 Weight last 48 hrs Weight 284 lb Physical Exam Narrative: EXAM NARRATIVE: GENERAL: Patient is alert, awake and oriented x3. NECK: No jugular vein distension. HEENT: No cyanosis. No icterus. No pallor. HEART: Regular S1 and S2. No murmur, rub or gallop. LUNGS: Decreased breath sounds bilaterally. ABDOMEN: Soft, nontender and nondistended. Positive bowel sounds. No guarding, rebound or tenderness. CENTRAL NERVOUS SYSTEM: Grossly nonfocal. EXTREMITIES: Lower extremities with 1+ edema bilaterally. Pulses dopplerable with good color Urinary Catheter Management^: Emanuel Latex: Cath Placed During This Visit: yes Reason for Continuing Indwelling Catheter: Accurate Measurement of Urinary Output in Critically Ill Patients Urinary Catheter Date of Insertion: 05/04/20 Urinary Catheter Time of Insertion: 10:40 Data : 05/06/20 04:30 05/06/20 04:30 A&P Assessment and plan (1) Paroxysmal atrial fibrillation with RVR: Continue rate control we will start her on low-dose beta-dorian from tomorrow. Status: Acute (2) Acute exacerbation of CHF (congestive heart failure): Patient continues to diurese well continue dobutamine for now we will switch her to p.o. Lasix at that time we will turn down the dobutamine as well Status: Deleted (3) Peripheral Vascular Disease: Patient has good dopplerable pulses both anterior and posterior tibial bilaterally he has good digital pulses even. Most likely he has Raynaud's phenomenon. Advised pain medicine and heating pad application. Status: Acute Attestations Medical Necessity Statement*: Require continuation hospitalization for above defined care. Coding Level of Care Code Established Pt Acute Translator Interpreter for Prabhu Peters Patient Type Established History Detailed Exam Detailed Medical Decision Making Moderate Complexity Diagnoses Paroxysmal atrial fibrillation with RVR I48.0 Acute exacerbation of CHF (congestive heart failure) I50.9 Peripheral Vascular Disease I73.9
--- NOTE | 2020-05-06 19:35 | PC.NURSE ---
No acute events throughout shift. Patient sat in chair and tolerated activity well. Patient reports pain to bilateral lower extremities. Verbal order received from dr. mejia to order norco 5-325 mg q6h, 1-2 prn for moderate to severe pain. RBVO. Report given to shift commander nurse who will administer pain medicine.
[2020-05-06] MEDS: trazodone 50 mg Tablet 25 MG PO (20:13)
[2020-05-06] MEDS: HYDROcodone-acetaminophen 5-325 mg Tablet 2 TAB PO (20:14)
[2020-05-06] MEDS: ALPRAZolam 0.5 mg Tablet PO (23:37)
[2020-05-07] VITALS (7 sets, daily range): BP systolic 93–115; BP diastolic 60–76; PULSE 103–116; RESP 16–24; TEMP 36.3–36.9; O2SAT 93–97
[2020-05-07] MEDS: HYDROcodone-acetaminophen 5-325 mg Tablet 2 TAB PO ×3 (03:05→15:36)
[2020-05-07] MEDS: FUROsemide 10 mg/mL SDV 4mL 40 MG IVP ×2 (05:16→15:36)
[2020-05-07 05:42] LABS: Basophils # 0.1 10^3/uL (0.0-0.1); Basophils % 0.8 %; Eosinophils # 0.2 10^3/uL (0.0-0.8); Eosinophils % 2.8 %; Hematocrit 36.9 % (42.0-52.0); Hemoglobin 11.7 g/dL (11.7-16.6); Lymphocytes # 1.4 10^3/uL (0.8-4.8); Lymphocytes % 22.2 %; Mean Corpuscular HGB Conc 31.7 g/dL (30.0-36.0); Mean Corpuscular Hemoglobin 32.6 pg (28.0-34.0); Mean Corpuscular Volume 102.8 fL (80-94); Mean Platelet Volume 11.1 fL (7.4-10.4); Monocytes # 0.8 10^3/uL (0.2-0.9); Monocytes % 12.4 %; Neutrophils # 3.95 10^3/uL (1.8-7.7); Neutrophils % 61.3 %; Nucleated Red Blood Cells % 0 %; Platelet Count 160 10^3/cmm (130-400); Red Blood Count 3.59 10^6/uL (4.1-5.3); White Blood Count 6.4 10^3/uL (4.0-10.0)
[2020-05-07 06:05] LABS: Alanine Aminotransferase 110 U/L (0-41); Albumin Level 3.3 g/dL (3.5-5.2); Alkaline Phosphatase 68 IU/L (40-130); Anion Gap 13.6 (5-19); Aspartate Amino Transferase 49 U/L (0-40); Blood Urea Nitrogen 21 mg/dL (8-23); Calcium 9.1 mg/dL (8.5-10.5); Carbon Dioxide 29 mmol/L (22-29); Chloride 97 mmol/L (98-107); Globulin 3.2 g/dL (1.3-4.6); Glomerular Filtration Rate 60.6 mL/min (90-130); Glucose 105 mg/dL (65-115); Osmolality Calculated 285 mOsm/kg (285-295); Potassium 3.6 mmol/L (3.5-5.1); Sodium 136 mmol/L (136-145); Total Protein 6.5 g/dL (6.6-8.7)
--- NOTE | 2020-05-07 06:54 | PC.NURSE ---
PER DR GRAY, PLEASE STOP DOBUTAMINE DRIP.
[2020-05-07] MEDS: artificial tears Op Soln 15 mL Btl 1 DROP EYE-BOTH (09:13)
[2020-05-07] MEDS: rivaroxaban 10 mg Tablet 20 MG PO (09:15)
[2020-05-07] MEDS: potassium chloride ER 10 mEq Tablet 20 MEQ PO ×3 (09:15→21:25)
[2020-05-07] MEDS: aspirin 81 mg EC Tablet PO (09:15)
--- NOTE | 2020-05-07 13:19 | DCPLANNER ---
IMM completed on 05/07/2020 @ 1310. Copy of rights given to pt.
--- NOTE | 2020-05-07 15:38 | PM.PN ---
Subjective Subjective: Interval history: Stable however continues to complain off now hurting in the heels legs and feet looks fine he has a dopplerable anterior posterior tibial pulses both feet look warm pink distal digital has some dusky appearance but he also has digital dopplerable pulse Medications: Reviewed: Yes Vitals/I&O/Wt Last Vital Signs Temp 97.6 F 05/07/20 15:12 Pulse 112 H 05/07/20 15:12 Resp 24 H 05/07/20 15:12 BP 101/76 05/07/20 15:12 Pulse Ox 93 05/07/20 15:12 05/07/20 05/07/20 05/07/20 06:59 14:59 22:59 Intake Total 500 / 1039.327 360 / 360 Output Total 350 / 3200 1150 / 1150 Balance 150 / -2160.673 -790 / -790 Weight last 48 hrs Weight 272 lb 11.2 oz Physical Exam Narrative: EXAM NARRATIVE: GENERAL: Patient is alert, awake and oriented x3. NECK: No jugular vein distension. HEENT: No cyanosis. No icterus. No pallor. HEART: Regular S1 and S2. No murmur, rub or gallop. LUNGS: Decreased breath sounds bilaterally. ABDOMEN: Soft, nontender and nondistended. Positive bowel sounds. No guarding, rebound or tenderness. CENTRAL NERVOUS SYSTEM: Grossly nonfocal. EXTREMITIES: Lower extremities without edema bilaterally. Pulses dopplerable with good color Urinary Catheter Management^: Emanuel Latex: Cath Placed During This Visit: yes Reason for Continuing Indwelling Catheter: Acute Urinary Retention or Obstruction Urinary Catheter Date of Insertion: 05/04/20 Urinary Catheter Time of Insertion: 10:40 Data : 05/07/20 05:15 05/07/20 05:15 A&P Assessment and plan (1) Paroxysmal atrial fibrillation with RVR: Patient has been started on metoprolol again at low-dose 12.5 twice daily because of blood pressure issues. Status: Acute (2) Acute exacerbation of CHF (congestive heart failure): Continue to diurese well dobutamine is off will continue IV Lasix 40 twice daily and from tomorrow may will put him back on overall diuretics most likely 40 mg in the morning and 40 mg at 1400 Status: Deleted (3) Peripheral Vascular Disease: Patient continues to have good dopplerable pulses of anterior posterior tibial even 1 can hear digital pulses. He has good pinkish color except some digital discoloration that is dusky appearance. He can easily wiggle the toes no sensory loss he is hurting in the foot in general. It may well obtain x-ray of the feet Status: Acute Attestations Medical Necessity Statement*: Patient require continued hospitalization for above defined care Coding Level of Care Code Established Pt Acute Drug Abuse Treatment Specialist for Chg Fwd Patient Type Established History Expanded Problem Focused Exam Expanded Problem Focused Medical Decision Making Moderate Complexity Diagnoses Paroxysmal atrial fibrillation with RVR I48.0 Acute exacerbation of CHF (congestive heart failure) I50.9 Peripheral Vascular Disease I73.9
--- NOTE | 2020-05-07 15:44 | PC.NURSE ---
AT 1300 KPAD WAS APPLIED TO PATIENTS FEET PER DR. CHEUNG.
--- NOTE | 2020-05-07 16:13 | PM.PN ---
Subjective Subjective: Interval history: No acute events overnight. Has documented 3 L urine output in last 24 hours. Denies any nausea, vomiting, headache. Continues to complain of toe pain. Labs and vitals noted. Medications: Reviewed: Yes Vitals/I&O/Wt Last Vital Signs Temp 97.6 F 05/07/20 15:12 Pulse 112 H 05/07/20 15:12 Resp 24 H 05/07/20 15:12 BP 101/76 05/07/20 15:12 Pulse Ox 93 05/07/20 15:12 05/07/20 05/07/20 05/07/20 06:59 14:59 22:59 Intake Total 500 / 1039.327 360 / 360 Output Total 350 / 3200 1150 / 1150 Balance 150 / -2160.673 -790 / -790 Weight last 48 hrs Weight 123.695 kg Physical Exam Narrative: EXAM NARRATIVE: General: No acute distress, AO x3, mildly distended, morbidly obese HEENT: PERRLA, pupils bilaterally equal and reactive Chest: Normal vesicular breath sounds, decreased breath sounds bilateral lower zone with occasional fine crackles, equal good air entry bilaterally CVS: S1-S2 regular, soft pansystolic murmur at apex 2/6, no tachycardia, no gallops, no rubs Abdomen: Soft, nontender, no organomegaly, bowel sounds present Neuro: No focal deficits, no facial deformity, AO x3, power 5/5 in all limbs Extremities: Bilateral erythema without any rise in local temperature in bilateral legs up to midcalf without any blisters. Second third and fourth toe on the right leg mildly purple in color, without any open wounds, cold to touch as compared to other part of the foot along with erythema present in the foot bilaterally. Bilateral foot cooler to touch as compared to the other part of the leg. Anterior tibial dopplerable bilaterally, posterior tibial not palpable Urinary Catheter Management^: Emanuel Latex: Cath Placed During This Visit: yes Reason for Continuing Indwelling Catheter: Acute Urinary Retention or Obstruction Urinary Catheter Date of Insertion: 05/04/20 Urinary Catheter Time of Insertion: 10:40 Data : 05/07/20 05:15 05/07/20 05:15 Micro: Microbiology 05/02/20 11:44 Blood Culture - Final Blood NO GROWTH AFTER 5 DAYS A&P Assessment and plan (1) Combined systolic and diastolic congestive heart failure, NYHA class 3: Status: Acute (2) Cardiogenic shock: Status: Acute (3) Cardiorenal syndrome: Status: Acute (4) BLAIR (acute kidney injury): Status: Acute (5) Paroxysmal atrial fibrillation with RVR: Status: Acute (6) Elevated liver enzymes: Status: Acute (7) Peripheral Vascular Disease: Status: Acute (8) Venous stasis dermatitis: Status: Acute (9) Blue toes: Reports he has recurrent blue toes on and off whenever he is off medications and currently has been happening for 3 to 4 days prior to admission, lateral 3 toes on the right foot appear blue. Sensation appears intact. He is afebrile, and has not been taking his Xarelto, discussed with him possibility of embolic disease, thrombus, versus plaque with blue toe syndrome, as he does have risk factors for cardiovascular disease. No signs of sepsis. Plan: At this time will anticoagulate. X-ray obtained, no fractures noted. Neurovascular checks. Appreciate interventional cardiology assessment. Status: Acute (10) Hepatitis B: Status: Acute (11) Hepatitis C: Status: Acute (12) Anxiety: Would benefit from follow-up with [facility] after discharge. Has been recently having more anxiety, also depression. Denies any suicidal ideation. Request for Xanax which she used to take for anxiety. Monitor for any changes in symptoms. Consider initiation of additional therapy if remains stable from cardiac perspective. Status: Acute (13) Smoking addiction: Discussed smoking cessation for 4 minutes. He states he understands that he needs to quit. Says that he had quit entirely in the past, but recently has been more stressed and has been taking occasional cigarettes. Will provide nicotine replacement as needed while in the hospital. Continue to encourage cessation. Will need additional evaluation of his anxiety and depression. Status: Acute (14) Non-compliant behavior: Status: Acute Additional A&P Information Acute on chronic congestive heart failure: Combined systolic and diastolic type. Echocardiogram done earlier in this admission consistent with EF of 38% with grade 3 diastolic dysfunction with thickened mitral and aortic valves with moderate mitral regurgitation, trace aortic insufficiency, moderate TR with RVSP of 44.8 and moderate biatrial enlargement. Continue Lasix 40 mg IV twice daily. Transition over to oral Lasix tomorrow. Patient is overall 6 L negative now. Daily weights. Strict input output charting. Fluid restriction up to 1800 cc. Cardiogenic shock: Patient's blood pressure and urine output better now. Can stop dobutamine drip. Can transition him over to oral metoprolol 12.5 twice daily starting in the evening today around 12 hours after stopping dobutamine drip depending on his blood pressures with mean over 65. Paroxysmal A. fib: Patient has a history of atrial fibrillation as an outpatient. Not on any medications for last 1 week at least because of noncompliance. Rate controlled at present. Continue with telemetry. Jairon vas score 4. Continue with home dose of Xarelto. BLAIR: Resolved. Most likely secondary to cardiorenal syndrome. Urinalysis appreciated and Fena consistent with prerenal. Continue with oral potassium supplementation. Case discussed with Dr. Salazar. Greatly appreciate recommendations. Hepatitis B/hepatitis C/elevated liver enzymes: Most likely because of shock liver from hypotension versus congestive hepatomegaly. HIV negative. Liver enzymes downtrending to almost normal. If they continue to remain stable can start statin the next 24 to 48 hours. Peripheral vascular disease: TBI results appreciated. Suggestive of mild to moderate peripheral arterial disease. We will check CPK levels. Continue with aspirin and Xarelto as above. We will restart statins once LFTs near normal. HbA1c results appreciated. Discussed in detail regarding need of smoking cessation. Nicotine gums ordered. Plan to reassess LIZZ once lower extremity swelling subsides a little bit. We will consult with Dr. Salazar when to reassess. Lack of adherence with medical therapy: He says his medications got wet, and because of that has not been taking them, he says intermittently only been taking Xarelto. Looking through his bottles many of them were empty and filled in February. He states he does not currently see a primary care provider. Full code. Xarelto will also help with DVT prophylaxis. Cardiac diet. PT/OT evaluation. Attestations Medical Necessity Statement*: Needs controlled hospitalization for resolving cardiogenic shock, acute on chronic congestive heart failure and paroxysmal A. fib, resolving BLAIR and elevated liver enzymes. Time Spent in Patient Care: Greater than 35 minutes (>than 50% of time spent in counselling and/or direct pt care on unit). Coding Level of Care Code Acute Leach Cell Operator for Prabhu Peters Diagnoses Combined systolic and diastolic congestive heart failure, NYHA class 3 I50.40 Cardiogenic shock R57.0 Cardiorenal syndrome I13.10 BLAIR (acute kidney injury) N17.9 Paroxysmal atrial fibrillation with RVR I48.0 Elevated liver enzymes R74.8 Peripheral Vascular Disease I73.9 Venous stasis dermatitis I87.2 Blue toes R23.0 Hepatitis B B19.10 Hepatitis C B19.20 Anxiety F41.9 Smoking addiction F17.200 Non-compliant behavior R46.89
[2020-05-07] MEDS: metoprolol tartrate 25 mg Tablet 12.5 MG PO (17:43)
[2020-05-07] MEDS: trazodone 50 mg Tablet 25 MG PO (21:25)
[2020-05-07] MEDS: ALPRAZolam 0.5 mg Tablet PO (21:29)
[2020-05-08] VITALS (22 sets, daily range): BP systolic 97–112; BP diastolic 67–87; PULSE 91–134; RESP 16–33; TEMP 36.4–36.8; O2SAT 90–97
[2020-05-08] MEDS: FUROsemide 10 mg/mL SDV 4mL 40 MG IVP (04:39)
[2020-05-08 06:15] LABS: Alanine Aminotransferase 78 U/L (0-41); Alkaline Phosphatase 68 IU/L (40-130); Aspartate Amino Transferase 30 U/L (0-40); Blood Urea Nitrogen 21 mg/dL (8-23); Calcium 9.1 mg/dL (8.5-10.5); Carbon Dioxide 28 mmol/L (22-29); Chloride 97 mmol/L (98-107); Globulin 3.7 g/dL (1.3-4.6); Glomerular Filtration Rate 60.6 mL/min (90-130); Glucose 95 mg/dL (65-115); Osmolality Calculated 283 mOsm/kg (285-295); Sodium 135 mmol/L (136-145); Total Bilirubin 1.2 mg/dL (0.15-1.2); Total Protein 6.7 g/dL (6.6-8.7)
[2020-05-08 06:26] LABS: Anion Gap 14.1 (5-19)
[2020-05-08 06:27] LABS: Potassium 4.1 mmol/L (3.5-5.1)
--- NOTE | 2020-05-08 07:18 | PC.NURSE ---
PT C/O 10 PAIN IN THE RIGHT LE. PT STATES THAT PAIN PILLS DO NOT CUT IT. PT STATES THAT THEY WERE A BIT ANXIOUS AND WANTED A PRN XANAX. REPORT GIVEN TO ONCOMING NURSE.
[2020-05-08] MEDS: metoprolol tartrate 25 mg Tablet 12.5 MG PO ×2 (09:10→17:38)
[2020-05-08] MEDS: aspirin 81 mg EC Tablet PO (09:10)
[2020-05-08] MEDS: potassium chloride ER 10 mEq Tablet 20 MEQ PO ×2 (09:10→17:40)
[2020-05-08] MEDS: rivaroxaban 10 mg Tablet 20 MG PO (09:10)
--- NOTE | 2020-05-08 10:44 | P.PN_ITS ---
Subjective Subjective: Interval history: No acute events overnight. Denies any nausea, vomiting, headache. Complaining of pain in his heels bilaterally and toes more so on the right foot. Urine output in last 24 hours documented to be around 2.5 L. Medications: Reviewed: Yes Vitals/I&O/Wt Last Vital Signs Temp 98.0 F 05/08/20 10:38 Pulse 94 05/08/20 10:38 Resp 27 H 05/08/20 10:38 BP 105/87 05/08/20 10:38 Pulse Ox 97 05/08/20 10:38 05/07/20 05/08/20 05/08/20 23:59 06:59 14:59 Output Total Balance Weight last 48 hrs Weight 124.194 kg Weight 123.695 kg Physical Exam Narrative: EXAM NARRATIVE: General: No acute distress, AO x3, mildly dist ended, morbidly obese HEENT: PERRLA, pupils bilaterally equal and reactive Chest: Normal vesicular breath sounds, decreased breath sounds bilateral lower zone with occasional fine crackles, equal good air entry bilaterally CVS: S1-S2 regular, soft pansystolic murmur at apex 2/6, no tachycardia, no g allops, no rubs Abdomen: Soft, nontender, no organomegaly, bowel sounds present Neuro: No focal deficits, no facial deformity, AO x3, power 5/5 in all limbs Extremities: Bilateral erythema without any rise in local temperature in bilateral legs up to midcalf without any blisters. Second third and fourth toe on the right leg mildly purple in color, without any open wounds, feet not cold to touch anymore. Anterior tibial dopplerable bilaterally, posterior tibial not palpable Urinary Catheter Management^: Emanuel Latex: Cath Placed During This Visit: yes Reason for Continuing Indwelling Catheter: Acute Urinary Retention or Obstruction Urinary Catheter Date of Insertion: 05/04/20 Urinary Catheter Time of Insertion: 10:40 Data : 05/07/20 05:15 05/08/20 04:35 Micro: Microbiology 05/02/20 18:30 Blood Culture - Final Blood NO GROWTH AFTER 5 DAYS 05/02/20 11:44 Blood Culture - Final Blood NO GROWTH AFTER 5 DAYS A&P Assessment and plan (1) Combined systolic and diastolic congestive heart failure, NYHA class 3: Status: Acute (2) Cardiogenic shock: Status: Acute (3) Cardiorenal syndrome: Status: Acute (4) BLAIR (acute kidney injury): Status: Acute (5) Paroxysmal atrial fibrillation with RVR: Status: Acute (6) Elevated liver enzymes: Status: Acute (7) Peripheral Vascular Disease: Status: Acute (8) Venous stasis dermatitis: Status: Acute (9) Blue toes: Reports he has recurrent blue toes on and off whenever he is off medications and currently has been happening for 3 to 4 days prior to admission, lateral 3 toes on the right foot appear blue. Sensation appears intact. He is afebrile, and has not been taking his Xarelto, discussed with him possibility of embolic disease, thrombus, versus plaque with blue toe syndrome, as he does have risk factors for cardiovascular disease. No signs of sepsis. Plan: At this time will anticoagulate. X-ray obtained, no fractures noted. Neurovascular checks. Appreciate interventional cardiology assessment. Status: Acute (10) Hepatitis B: Status: Acute (11) Hepatitis C: Status: Acute (12) Anxiety: Would benefit from follow-up with [facility] after discharge. Has been recently having more anxiety, also depression. Denies any suicidal ideation. Request for Xanax which she used to take for anxiety. Monitor for any changes in symptoms. Consider initiation of additional therapy if remains stable from cardiac perspective. Status: Acute (13) Smoking addiction: Discussed smoking cessation for 4 minutes. He states he understands that he needs to quit. Says that he had quit entirely in the past, but recently has been more stressed and has been taking occasional cigarettes. Will provide nicotine replacement as needed while in the hospital. Continue to encourage cessation. Will need additional evaluation of his anxiety and depression. Status: Acute (14) Non-compliant behavior: Status: Acute Additional A&P Information Acute on chronic congestive heart failure: Combined systolic and diastolic type. Echocardiogram done earlier in this admission consistent with EF of 38% with grade 3 diastolic dysfunction with thickened mitral and aortic valves with moderate mitral regurgitation, trace aortic insufficiency, moderate TR with RVSP of 44.8 and moderate biatrial enlargement. Switch over to oral Lasix 40 mg twice daily. Patient is overall 8.7 L negative now. Daily weights. Strict input output charting. Fluid restriction up to 1800 cc. Cardiogenic shock: Blood pressures better now. Resolved. Paroxysmal A. fib: Patient has a history of atrial fibrillation as an outpatient. Not on any medications for last 1 week at least because of noncompliance. Rate controlled at present. Continue with metoprolol 12.5 mg twice daily. Will consult with cardiology for possible digoxin versus amiodarone for better rate control as patient becomes tachycardic on minimal ambulation and blood pressures are borderline normal Continue with telemetry. Jairon vas score 4. Continue with home dose of Xarelto. BLAIR: Resolved. Most likely secondary to cardiorenal syndrome. Urinalysis appreciated and Fena consistent with prerenal. Continue with oral potassium supplementation. Case discussed with Dr. Salazar. Greatly appreciate recommendations. Hepatitis B/hepatitis C/elevated liver enzymes: Resolved. Most likely because of shock liver from hypotension versus congestive hepatomegaly. HIV negative. We will start him on statins today. Peripheral vascular disease: TBI results appreciated. Suggestive of mild to moderate peripheral arterial disease. Continue with aspirin and Xarelto as above, restart her statin today.. HbA1c results appreciated. Discussed in detail regarding need of smoking cessation. Nicotine gums ordered. Plan to reassess LIZZ once lower extremity swelling subsides a little bit. We will consult with Dr. Salazar when to reassess. Foot pain: Could be secondary to peripheral vascular disease but foot are a lot warmer since cardiogenic shock has resolved. Patient continues to have pain. Cannot rule out neuropathy. Start patient on gabapentin 300 mg 3 times daily. We will repeat bilateral foot x-rays dual views to rule out calcaneal spurs/plantar fasciitis. Lack of adherence with medical therapy: He says his medications got wet, and because of that has not been taking them, he says intermittently only been taking Xarelto. Looking through his bottles many of them were empty and filled in February. He states he does not currently see a primary care provider. Full code. Xarelto will also help with DVT prophylaxis. Cardiac diet. PT/OT evaluation. Attestations Medical Necessity Statement*: Patient requires further hospitalization for management of acute on chronic congestive heart failure, resolving cardiogenic shock, paroxysmal atrial fibrillation, resolving BLAIR and deranged liver functions. Time Spent in Patient Care: Greater than 35 minutes (>than 50% of time spent in counselling and/or direct pt care on unit) . Coding Level of Care Code Acute Flash Drier Operator for Prabhu Peters Diagnoses Combined systolic and diastolic congestive heart failure, NYHA class 3 I50.40 Cardiogenic shock R57.0 Cardiorenal syndrome I13.10 BLAIR (acute kidney injury) N17.9 Paroxysmal atrial fibrillation with RVR I48.0 Elevated liver enzymes R74.8 Peripheral Vascular Disease I73.9 Venous stasis dermatitis I87.2 Blue toes R23.0 Hepatitis B B19.10 Hepatitis C B19.20 Anxiety F41.9 Smoking addiction F17.200 Non-compliant behavior R46.89
--- NOTE | 2020-05-08 12:03 | XRR_ITS ---
PROCEDURE INFORMATION: Exam: XR Left Foot Exam date and time: 05/08/2020 12:05 PM Age: 65 years old Clinical indication: Pain; Foot; Bilateral TECHNIQUE: Imaging protocol: XR Left foot. Views: 1 or 2 views. COMPARISON: No relevant prior studies available. FINDINGS: Bones/joints: Multi articular [id number] joint space narrowing. There is a calcaneal spur. There is a normal accessory os trigonum accessory ossicle. Soft tissues: Plantar fascia shadow appears thickened. XR/XR foot LT 2V [id number] IMPRESSION: There is a calcaneal spur and the plantar fascia shadow appears thickened. This can be associated with plantar fasciitis. Please correlate clinically.
--- NOTE | 2020-05-08 12:03 | XRR_ITS ---
PROCEDURE INFORMATION: Exam: XR Right Foot Exam date and time: 05/08/2020 12:05 PM Age: 65 years old Clinical indication: Pain; Foot; Bilateral TECHNIQUE: Imaging protocol: XR Right foot. Views: 1 or 2 views. COMPARISON: CR XR foot RT min 3V* [id number] 05/02/2020 3:43 PM FINDINGS: Bones/joints: There is a calcaneal spur. Multi articular [id number] joint space narrowing. Soft tissues: Normal. Vasculature: There are peripheral vascular calcifications. XR/XR foot RT 2V [id number] IMPRESSION: There is a calcaneal spur. These can be associated with plantar fasciitis. Please correlate clinically.
[2020-05-08] MEDS: ondansetron 2 mg/ML SDV 2 mL 4 MG IVP (12:24)
[2020-05-08] MEDS: gabapentin 300 mg Capsule PO ×2 (12:24→20:44)
--- NOTE | 2020-05-08 13:09 | PC.OT ---
OT orders received to evaluate and treat. Pt. requests evaluation to be deferred until the following day. States he's not feeling well (nauseous) and just received a shot.
--- NOTE | 2020-05-08 14:06 | P.TCS_ITS ---
Transition of Care Summary Hospital Course: Abraham Newton is a 65 year old gentleman originally from [place] but most recently in [place] who has been traveling across country with his children in a trailer and eventually plans to settle down in [place]. He has a past medical history of paroxysmal A. fib on Xarelto, congestive heart failure, hypertension, hyperlipidemia, anxiety, smoking addiction. He has been noncompliant to his medications for around a week prior to presentation to the ER. He states he takes his medications on and off. He presented to the ER on May 02 because of extreme shortness of breath on exertion getting worse for last 2 days with orthopnea and PND for last 1 day along with worsening swelling of both his feet. He was admitted to the hospital for treatment of atrial fibrillation with rapid ventricular response and congestive heart failure. He was started on Cardizem drip and IV diuresis. On first night in the hospital patient developed hypotension after which Cardizem drip and diuresis was stopped. Post that his hospital stay was complicated by developing of acute renal failure, anuria, deranged liver functions. He was given fluid challenge for around 24 hours to which he did not respond after which he was started on dobutamine drip for cardiogenic shock along with IV diuresis. Patient responded remarkably to this and has been diuresing well. Dobutamine drip was stopped on May 07. His BLAIR and liver derrangement resolved. Hepatitis panel was positive for hepatitis B and C infection but PCR are negative for both s/o old infection. On presentation patient had bilateral blue toes which were cold to touch as compared to rest of his feet and has been complaining of foot pain for last 3 days. Patient states he has been having blue toes on and off for last couple of years whenever he would stop his medications. LIZZ was done which was consistent with moderate peripheral vascular disease. Cardiology was consulted. He was started back on anticoagulation with Xarelto. After dobutamine drip the circulation to feet improved and they became warm to touch but he continued to have pain. It is believed patient's pain in the feet are most likely a combination of peripheral vascular disease, plantar fasciitis as evident on feet x-ray and neuropathy. He has been started on gabapentin for same. Pending Results: Pending labs and procedures: Pending at discharge Category Date Time Status Complete Blood Co unt w/Auto AM LABS Lab 05/09/20 04:00 Ordered Comprehensive Met abolic Panel AM LA BS Lab 05/09/20 04:00 Ordered Digoxin Routine Lab 05/09/20 04:00 Ordered Provider Assuming Care: Next clinician assuming care: Cyndee Sharp
[2020-05-08] MEDS: FUROsemide 40 mg Tablet PO (15:59)
[2020-05-08] MEDS: digoxin 250 mcg Tablet PO (15:59)
--- NOTE | 2020-05-08 16:26 | P.PN_ITS ---
Subjective Subjective: Interval history: Stable and feeling better says foot pain has improved, x-ray of the feet explained Medications: Reviewed: Yes Vitals/I&O/Wt Last Vital Signs Temp 98.2 F 05/08/20 15:34 Pulse 98 05/08/20 15:59 Resp 30 H 05/08/20 15:34 BP 112/76 05/08/20 15:34 Pulse Ox 96 05/08/20 15:34 05/08/20 05/08/20 05/08/20 06:59 14:59 22:59 Intake Total 500 / 500 Output Total Balance 500 / 500 Weight last 48 hrs Weight 273 lb 12.8 oz Weight 272 lb 11.2 oz Physical Exam Narrative: EXAM NARRATIVE: GENERAL: Patient is alert, awake and oriented x3. NECK: No jugular vein distension. HEENT: No cyanosis. No icterus. No pallor. HEART: Regular S1 and S2. No murmur, rub or gallop. LUNGS: Decreased breath sounds bilaterally. ABDOMEN: Soft, nontender and nondistended. Positive bowel sounds. No guarding, rebound or tenderness. CENTRAL NERVOUS SYSTEM: Grossly nonfocal. EXTREMITIES: Lower extremities without edema bilaterally. Pulses dopplerable with good color Urinary Catheter Management^: Emanuel Latex: Cath Placed During This Visit: yes Reason for Continuing Indwelling Catheter: Acute Urinary Retention or Obstruction Urinary Catheter Date of Insertion: 05/04/20 Urinary Catheter Time of Insertion: 10:40 Data : 05/07/20 05:15 05/08/20 04:35 Micro: Microbiology 05/02/20 18:30 Blood Culture - Final Blood NO GROWTH AFTER 5 DAYS 05/02/20 11:44 Blood Culture - Final Blood NO GROWTH AFTER 5 DAYS A&P Assessment and plan (1) Paroxysmal atrial fibrillation with RVR: For rate control digoxin will be added as per Dr Long I think this is a good idea. Status: Acute (2) Acute exacerbation of CHF (congestive heart failure): continues to diurese well we will replenish potassium we will reduce diuretics to 40 mg twice daily and switch patient to p.o. from tomorrow Status: Deleted (3) Peripheral Vascular Disease: Continues to have good blood flow, x-ray of the feet consistent with plantar fasciitis. Treatment as per medicine Status: Acute Attestations Medical Necessity Statement*: Patient require continuation hospitalization for above defined care Coding Level of Care Code Established Pt Acute Die Repairer Trimmer Dies for Chg Fwd Patient Type Established History Expanded Problem Focused Exam Expanded Problem Focused Medical Decision Making Moderate Complexity Diagnoses Paroxysmal atrial fibrillation with RVR I48.0 Acute exacerbation of CHF (congestive heart failure) I50.9 Peripheral Vascular Disease I73.9
--- NOTE | 2020-05-08 16:37 | PC.PT ---
PT note; patient declines attempted physical therapy evaluation at this time stating he has been up all day and wishes to take a rest, agreeable to evaluation in the morning.
--- NOTE | 2020-05-08 19:35 | PC.NURSE ---
ASSUMED CARE OF PT. PT IS RESTING IN BED AT THIS TIME. DENIES PAIN OTHER THAN FEET AT A 10/10. PT STATES THAT IT IS ALWAYS A 10/10. WILL CONTINUE TO MONITOR.
[2020-05-08] MEDS: trazodone 50 mg Tablet 25 MG PO (20:44)
[2020-05-09] VITALS (37 sets, daily range): BP systolic 107–114; BP diastolic 65–98; PULSE 84–114; RESP 17–36; TEMP 36.4–36.8; O2SAT 94–97
[2020-05-09] MEDS: ALPRAZolam 0.5 mg Tablet PO (00:10)
[2020-05-09 05:39] LABS: Basophils # 0.1 10^3/uL (0.0-0.1); Basophils % 0.7 %; Eosinophils # 0.2 10^3/uL (0.0-0.8); Eosinophils % 2.1 %; Hematocrit 38.6 % (42.0-52.0); Hemoglobin 12.2 g/dL (11.7-16.6); Lymphocytes # 1.9 10^3/uL (0.8-4.8); Mean Corpuscular HGB Conc 31.6 g/dL (30.0-36.0); Mean Corpuscular Hemoglobin 32.8 pg (28.0-34.0); Mean Corpuscular Volume 103.8 fL (80-94); Mean Platelet Volume 11.4 fL (7.4-10.4); Monocytes # 0.7 10^3/uL (0.2-0.9); Monocytes % 10.1 %; Neutrophils # 4.41 10^3/uL (1.8-7.7); Neutrophils % 60.8 %; Nucleated Red Blood Cells % 0 %; Platelet Count 187 10^3/cmm (130-400); Red Blood Count 3.72 10^6/uL (4.1-5.3); Red Cell Distribution Width 14.8 % (12.1-15.1); White Blood Count 7.2 10^3/uL (4.0-10.0)
[2020-05-09 06:09] LABS: Alanine Aminotransferase 54 U/L (0-41); Alkaline Phosphatase 61 IU/L (40-130); Anion Gap 16.3 (5-19); Aspartate Amino Transferase 22 U/L (0-40); Blood Urea Nitrogen 28 mg/dL (8-23); Calcium 9.5 mg/dL (8.5-10.5); Carbon Dioxide 25 mmol/L (22-29); Chloride 97 mmol/L (98-107); Globulin 4.1 g/dL (1.3-4.6); Glomerular Filtration Rate 74.8 mL/min (90-130); Glucose 99 mg/dL (65-115); Osmolality Calculated 284 mOsm/kg (285-295); Potassium 4.3 mmol/L (3.5-5.1); Sodium 134 mmol/L (136-145); Total Bilirubin 0.9 mg/dL (0.15-1.2); Total Protein 7.1 g/dL (6.6-8.7)
[2020-05-09 06:19] LABS: Digoxin 0.4 ng/mL (0.6-1.2)
--- NOTE | 2020-05-09 07:46 | PC.NURSE ---
PT RESTING IN BED. PT DENIES PAIN. BEDSIDE REPORT WAS GIVEN TO TERI ROLDAN.
[2020-05-09] MEDS: aspirin 81 mg EC Tablet PO (08:07)
[2020-05-09] MEDS: rivaroxaban 10 mg Tablet 20 MG PO (08:07)
[2020-05-09] MEDS: potassium chloride ER 10 mEq Tablet 20 MEQ PO ×2 (08:08→17:18)
[2020-05-09] MEDS: digoxin 125 mcg Tablet PO (08:08)
[2020-05-09] MEDS: metoprolol tartrate 25 mg Tablet 12.5 MG PO ×2 (08:08→17:18)
[2020-05-09] MEDS: FUROsemide 40 mg Tablet PO ×2 (08:09→17:19)
[2020-05-09] MEDS: gabapentin 300 mg Capsule PO ×3 (08:09→21:03)
[2020-05-09] MEDS: fentaNYL 50 mcg/mL INJ 2mL 25 MCG IVP (09:48)
--- NOTE | 2020-05-09 10:04 | PC.NURSE ---
Patient had dried blood at the tip of the penis and around the brooke catheter tubing. Jocy care provided, brooke balloon deflated and catheter removed. Patient is red and excoriated in the groin and scrotum bilaterally.
--- NOTE | 2020-05-09 10:45 | PM.PN ---
Subjective Subjective: Interval history: Assuming care of this patient today, chart reviewed extensively. Hemodynamically stable, minimal tachycardia and tachypnea, on room air, afebrile, had 400 mL urine output overnight for total net negative fluid balance of 8.6 L. AM labs reviewed, noted improvement in creatinine, stable hemoglobin. Resting in bed, declined therapy this morning due to Emanuel catheter which has now been discontinued. Medications: Reviewed: Yes Medication Review Details: Active Medications Generic Name Dose Route Start Last Admin Trade Name Freq PRN Reason Stop Dose Admin Acetaminophen 650 mg 05/02/20 15:40 Tylenol PO Q6H PRN Mild/Mod Pain Or Temp >/= 101 Hydrocodone Bitart /Acetaminophen 2 tab 05/06/20 19:25 05/07/20 15:36 [place] 5-325 Mg PO 2 tab Q6H PRN Administration MODERATE TO SEVER E PAIN Alprazolam 0.5 mg 05/02/20 18:13 05/09/20 00:10 Xanax PO 0.5 mg DAILY PRN Administration ANXIETY Artificial Tears 1 drop 05/07/20 08:56 05/07/20 09:13 Isopto Tears EYE-BOTH 1 applic DAILY PRN Administration DRY EYE(S) Aspirin 81 mg 05/03/20 09:00 05/09/20 08:07 Aspirin Ec PO 81 mg DAILY YULI Administration Atorvastatin Calci um 20 mg 05/02/20 21:00 05/02/20 20:50 Lipitor PO Not Given BEDTIME YULI Digoxin 125 mcg 05/09/20 09:00 05/09/20 08:08 Lanoxin PO 125 mcg DAILY YULI Administration Furosemide 40 mg 05/08/20 16:00 05/09/20 08:09 Lasix PO 40 mg BID@08,16 YULI Administration Gabapentin 300 mg 05/08/20 11:20 05/09/20 08:09 Neurontin PO 300 mg TID YULI Administration Metoprolol Tartrat e 12.5 mg 05/07/20 18:00 05/09/20 08:08 Lopressor PO 12.5 mg BID YULI Administration Nicotine Polacrile x 2 mg 05/02/20 15:40 Nicorette BUCCAL Q2H PRN WITHDRAWAL Ondansetron HCl 4 mg 05/02/20 20:14 05/08/20 12:24 Zofran IVP 4 mg Q6H PRN Administration NAUSEA AND VOMITI NG Potassium Chloride 20 meq 05/08/20 18:00 05/09/20 08:08 Klor-Con 10 PO 20 meq BID YULI Administration Rivaroxaban 20 mg 05/03/20 16:00 05/09/20 08:07 Xarelto PO 20 mg DAILY YULI Administration Tramadol HCl 50 mg 05/04/20 16:27 05/06/20 08:47 Ultram PO 50 mg Q8H PRN Administration MODERATE PAIN Trazodone HCl 25 mg 05/02/20 21:00 05/08/20 20:44 Desyrel PO 25 mg BEDTIME YULI Administration No Known Allergies Allergy (Verified 05/02/20 14:33) Vitals/I&O/Wt Last Vital Signs Temp 97.6 F 05/09/20 07:35 Pulse 102 H 05/09/20 08:08 Resp 22 H 05/09/20 09:48 BP 113/74 05/09/20 07:35 Pulse Ox 96 05/09/20 07:35 05/08/20 05/09/20 05/09/20 22:59 06:59 14:59 Intake Total 120 / 620 307 / 927 200 / 200 Output Total 850 / 850 100 / 950 Balance -730 / -230 207 / -23 200 / 200 Weight last 48 hrs Weight 122.697 kg Weight 124.194 kg Physical Exam Const: COMMON NORMALS: no acute distress, patient oriented x3 and alert GENERAL APPEARANCE: cooperative and comfortable NUTRITIONAL APPEARANCE: obese morbidly obese ORIENTATION/CONSCIOUSNESS: Yes awake OTHER: -resting in bed HENMT: COMMON NORMALS: normocephalic, atraumatic, hearing grossly normal bilaterally and moist oral mucous membranes HEAD & SCALP: normocephalic and atraumatic Eye: COMMON NORMALS: Equal, round and reactive pupils present, EOMs intact bilaterally and conjunctivae normal CONJUNCTIVA: Yes conjunctivae normal PUPIL: Yes Equal, round and reactive pupils present Neck/C-Spine: COMMON NORMALS: full ROM GENERAL: Yes normal visual inspection and Yes trachea midline Resp: COMMON NORMALS: normal respiratory effort, No retractions, No use of accessory muscles and clear to auscultation bilaterally EFFORT & INSPECTION: Yes able to speak in complete sentences, Yes symmetric chest movement and Yes tachypneic AUSCULTATION: clear to auscultation bilaterally OTHER: -on RA Cardio: COMMON NORMALS: regular rate, regular rhythm, S1 normal heart sound present, S2 normal heart sound present and No murmurs present (Cardio) RATE: regular rate RHYTHM: regular rhythm HEART SOUNDS: S1 normal heart sound present and S2 normal heart sound present GI: COMMON NORMALS: Normal to inspection, nondistended, normoactive bowel sounds present, Soft to palpation and non-tender PALPATION: Yes Soft to palpation Extremity: COMMON NORMALS: normal to inspection, full ROM and no clubbing, cyanosis or edema; negative for no pedal edema Neuro: COMMON NORMALS: patient oriented x3, moves all extremities, no focal motor deficits and no sensory deficits noted SENSORIUM/ORIENTATION: Yes alert Psych: COMMON NORMALS: mental status grossly normal, Normal thought process present, cooperative, normal affect and speech normal SPEECH: Yes normal speech THOUGHT PROCESS: Normal thought process present Skin: COMMON NORMALS: no jaundice, no petechiae and no mottling NARRATIVE SKIN EXAM: -bilateral inguinal excoriation, R > L Urinary Catheter Management^: Emanuel Latex: Cath Placed During This Visit: yes Reason for Continuing Indwelling Catheter: Acute Urinary Retention or Obstruction Urinary Catheter Date of Insertion: 05/04/20 Urinary Catheter Time of Insertion: 10:40 Data : 05/09/20 04:40 05/09/20 04:40 A&P Assessment and plan (1) Cardiogenic shock: -improved and dobutamine drip discontinued -VSS; continue to monitor -cardiology consultation appreciated Status: Acute (2) Combined systolic and diastolic congestive heart failure, NYHA class 3: -better compensated following dobutamine drip; now transitioned to oral lasix -has had good diuresis, net negative fluid balance of 8.6 L -Echo: EF=38%, G3DD, global LV hypokinesis, moderate pulmonary HTN, moderate MR, trace AR, moderate TR -VSS; continue to monitor Status: Acute Qualifiers: Congestive heart failure chronicity: acute on chronic Qualified Code(s): I50.43 - Acute on chronic combined systolic (congestive) and diastolic (congestive) heart failure (3) Cardiorenal syndrome: -as noted above -renal function improved, good urine output consistently -renal US unremarkable Status: Acute Qualifiers: Heart failure presence: with heart failure Hypertensive chronic kidney disease stage: stage 1-4 or unspecified chronic kidney disease Qualified Code(s): I13.0 - Hypertensive heart and chronic kidney disease with heart failure and stage 1 through stage 4 chronic kidney disease, or unspecified chronic kidney disease (4) Paroxysmal atrial fibrillation with RVR: -presented with A.fib with RVR -telemetry monitoring -on digoxin, metoprolol -VSS; continue to monitor vitals -on AC with Xarelto -Echo as noted above Status: Acute (5) Elevated liver enzymes: -likely secondary to hepatic congestion from CHF exacerbation -noted to be hepatitis B and C positive, undetectable viral loads so not acute infection -improved LFTs -HIV negative -noted hepatic steatosis on US Status: Acute (6) BLAIR (acute kidney injury): -as noted above -improved Status: Acute (7) Peripheral Vascular Disease: -noted abnormal ABIs on L, suggestive of moderate PAD, mild to moderate diffuse plaque in the iliac and femoral arteries bilaterally -noted abnormal TBIs bilaterally; moderate PAD -venous stasis dermatitis clinically -no fracture or dislocation on x-ray -no DVT on bilateral venous duplex -noted blue toes -noted evidence of plantar fasciitis on x-ray -on anticoagulation with Xarelto, ASA, statin -on gabapentin for pain given suspicion of neuropathy Status: Chronic (8) Smoking addiction: -nicotine replacement therapy -counseling provided, cessation encouraged Status: Chronic (9) Anxiety: -on trazadone, xanax PRN Status: Chronic Additional A&P Information -Morbid obesity: BMI-41 kg/m2 -noted hx of medication non-compliance -hx of hyperlipidemia; on statin -likely has underlying CKD, unknown stage as no baseline labs to reference. -physical deconditioning; so far has been reluctant to work with therapy, PT/OT evaluations appreciated -cardiac diet as tolerated -DVT ppx not needed as on Xarelto -Dispo: home with HH -Code status: FULL code Attestations Medical Necessity Statement*: Patient requires hospitalization for continued optimization of medical management, telemetry monitoring. Time Spent in Patient Care: Greater than 35 minutes (>than 50% of time spent in counselling and/or direct pt care on unit). Coding Level of Care Code Acute Medical Collections Representative for Prabhu Fwd Exam Comprehensive Diagnoses Cardiogenic shock R57.0 Combined systolic and diastolic congestive heart failure, NYHA class 3 I50.43 Congestive heart failure chronicity: acute on chronic Cardiorenal syndrome I13.0 Heart failure presence: with heart failure Hypertensive chronic kidney disease stage: stage 1-4 or unspecified chronic kidney disease Paroxysmal atrial fibrillation with RVR I48.0 Elevated liver enzymes R74.8 BLAIR (acute kidney injury) N17.9 Peripheral Vascular Disease I73.9 Smoking addiction F17.200 Anxiety F41.9
--- NOTE | 2020-05-09 13:50 | DCPLANNER ---
IMM completed on 05/09/2020 @ 1137. Copy of Medicare rights given to pt.
--- NOTE | 2020-05-09 15:34 | PC.NURSE ---
Nursing Note: [place] of care. Assumed care of patient at this time. All VS and assessments as charted.
--- NOTE | 2020-05-09 17:08 | P.PN_ITS ---
Subjective Subjective: Interval history: Continues to improve stays stable feet helps but much better and improved Medications: Reviewed: Yes Medication Review Details: Active Medications Generic Name Dose Route Start Last Admin Trade Name Freq PRN Reason Stop Dose Admin Acetaminophen 650 mg 05/02/20 15:40 Tylenol PO Q6H PRN Mild/Mod Pain Or Temp >/= 101 Hydrocodone Bitart /Acetaminophen 2 tab 05/06/20 19:25 05/07/20 15:36 [place] 5-325 Mg PO 2 tab Q6H PRN Administration MODERATE TO SEVER E PAIN Alprazolam 0.5 mg 05/02/20 18:13 05/09/20 00:10 Xanax PO 0.5 mg DAILY PRN Administration ANXIETY Artificial Tears 1 drop 05/07/20 08:56 05/07/20 09:13 Isopto Tears EYE-BOTH 1 applic DAILY PRN Administration DRY EYE(S) Aspirin 81 mg 05/03/20 09:00 05/09/20 08:07 Aspirin Ec PO 81 mg DAILY YULI Administration Atorvastatin Calci um 20 mg 05/02/20 21:00 05/02/20 20:50 Lipitor PO Not Given BEDTIME YULI Digoxin 125 mcg 05/09/20 09:00 05/09/20 08:08 Lanoxin PO 125 mcg DAILY YULI Administration Furosemide 40 mg 05/08/20 16:00 05/09/20 08:09 Lasix PO 40 mg BID@08,16 YULI Administration Gabapentin 300 mg 05/08/20 11:20 05/09/20 08:09 Neurontin PO 300 mg TID YULI Administration Metoprolol Tartrat e 12.5 mg 05/07/20 18:00 05/09/20 08:08 Lopressor PO 12.5 mg BID YULI Administration Nicotine Polacrile x 2 mg 05/02/20 15:40 Nicorette BUCCAL Q2H PRN WITHDRAWAL Ondansetron HCl 4 mg 05/02/20 20:14 05/08/20 12:24 Zofran IVP 4 mg Q6H PRN Administration NAUSEA AND VOMITI NG Potassium Chloride 20 meq 05/08/20 18:00 05/09/20 08:08 Klor-Con 10 PO 20 meq BID YULI Administration Rivaroxaban 20 mg 05/03/20 16:00 05/09/20 08:07 Xarelto PO 20 mg DAILY YULI Administration Tramadol HCl 50 mg 05/04/20 16:27 05/06/20 08:47 Ultram PO 50 mg Q8H PRN Administration MODERATE PAIN Trazodone HCl 25 mg 05/02/20 21:00 05/08/20 20:44 Desyrel PO 25 mg BEDTIME YULI Administration No Known Allergies Allergy (Verified 05/02/20 14:33) Vitals/I&O/Wt Last Vital Signs Temp 97.9 F 05/09/20 12:00 Pulse 84 05/09/20 14:30 Resp 24 H 05/09/20 14:30 BP 108/65 05/09/20 16:00 Pulse Ox 96 05/09/20 12:00 05/09/20 05/09/20 05/09/20 06:59 14:59 22:59 Intake Total 307 / 927 650 / 650 240 / 890 Output Total 100 / 950 140 / 140 200 / 340 Balance 207 / -23 510 / 510 40 / 550 Weight last 48 hrs Weight 270 lb 8 oz Weight 273 lb 12.8 oz Physical Exam Narrative: EXAM NARRATIVE: GENERAL: Patient is alert, awake and oriented x3. NECK: No jugular vein distension. HEENT: No cyanosis. No icterus. No pallor. HEART: Regular S1 and S2. No murmur, rub or gallop. LUNGS: Clear to auscultate bilaterally. ABDOMEN: Soft, nontender and nondistended. Positive bowel sounds. No guarding, rebound or tenderness. CENTRAL NERVOUS SYSTEM: Grossly nonfocal. EXTREMITIES: Lower extremities without edema bilaterally. Urinary Catheter Management^: Emanuel Latex: Cath Placed During This Visit: yes Reason for Continuing Indwelling Catheter: Acute Urinary Retention or Ob struction Urinary Catheter Date of Insertion: 05/04/20 Urinary Catheter Time of Insertion: 10:40 Data : 05/09/20 04:40 05/09/20 04:40 A&P Assessment and plan (1) Paroxysmal atrial fibrillation with RVR: Rate controlled continue anticoagulation Status: Acute (2) Acute exacerbation of CHF (congestive heart failure): Continues to improve much better almost euvolemic we will switch patient to p.o. Lasix and hopefully discharge tomorrow Status: Deleted (3) Peripheral Vascular Disease: Stable. Fasciitis as per medicine Status: Chronic Attestations Medical Necessity Statement*: Require continuation of hospitalization for above defined care for Coding Level of Care Code Established Pt Acute Spin Tank Tender for Chg Fwd Patient Type Established History Expanded Problem Focused Exam Expanded Problem Focused Medical Decision Making Moderate Complexity Diagnoses Paroxysmal atrial fibrillation with RVR I48.0 Acute exacerbation of CHF (congestive heart failure) I50.9 Peripheral Vascular Disease I73.9
--- NOTE | 2020-05-09 18:19 | PC.PT ---
PT note;, patient complaining of severe pain from catheter, declines physical therapy at this time, check back later, patient eating supper, will reattempt evaluation in a.m.
[2020-05-09] MEDS: trazodone 50 mg Tablet 25 MG PO (21:03)
[2020-05-10] VITALS (7 sets, daily range): BP systolic 100–130; BP diastolic 75–88; PULSE 82–120; RESP 14–24; TEMP 36.6–37.2; O2SAT 94–97
[2020-05-10] MEDS: ALPRAZolam 0.5 mg Tablet PO ×2 (02:01→23:31)
[2020-05-10] MEDS: metoprolol tartrate 25 mg Tablet 12.5 MG PO ×2 (08:11→17:31)
[2020-05-10] MEDS: aspirin 81 mg EC Tablet PO (08:12)
[2020-05-10] MEDS: digoxin 125 mcg Tablet PO (08:12)
[2020-05-10] MEDS: FUROsemide 40 mg Tablet PO ×2 (08:13→16:39)
[2020-05-10] MEDS: rivaroxaban 10 mg Tablet 20 MG PO (08:13)
[2020-05-10] MEDS: gabapentin 300 mg Capsule PO ×3 (08:13→20:18)
[2020-05-10] MEDS: potassium chloride ER 10 mEq Tablet 20 MEQ PO ×2 (08:14→17:31)
--- NOTE | 2020-05-10 10:46 | PM.PN ---
Subjective Subjective: Interval history: Hemodynamically stable, afebrile, on room air, had 700 mL urine output overnight for total negative fluid balance of 9.4 L. Has been more active today and ambulated with physical therapy for about 100 feet. We will continue to encourage out of bed activity and ambulation as tolerated. Has been able to void independently since Emanuel catheter removal yesterday. Sitting in chair by bedside, completed therapy session earlier, complains of increased foot pain potentially as he has not been walking for quite some time. He is encouraged that he was able to walk at all. Medications: Reviewed: Yes Medication Review Details: Active Medications Generic Name Dose Route Start Last Admin Trade Name Freq PRN Reason Stop Dose Admin Acetaminophen 650 mg 05/02/20 15:40 Tylenol PO Q6H PRN Mild/Mod Pain Or Temp >/= 101 Hydrocodone Bitart /Acetaminophen 2 tab 05/06/20 19:25 05/07/20 15:36 [place] 5-325 Mg PO 2 tab Q6H PRN Administration MODERATE TO SEVER E PAIN Alprazolam 0.5 mg 05/02/20 18:13 05/10/20 02:01 Xanax PO 0.5 mg DAILY PRN Administration ANXIETY Artificial Tears 1 drop 05/07/20 08:56 05/07/20 09:13 Isopto Tears EYE-BOTH 1 applic DAILY PRN Administration DRY EYE(S) Aspirin 81 mg 05/03/20 09:00 05/10/20 08:12 Aspirin Ec PO 81 mg DAILY YULI Administration Atorvastatin Calci um 20 mg 05/02/20 21:00 05/02/20 20:50 Lipitor PO Not Given BEDTIME YULI Digoxin 125 mcg 05/09/20 09:00 05/10/20 08:12 Lanoxin PO 125 mcg DAILY YULI Administration Furosemide 40 mg 05/08/20 16:00 05/10/20 08:13 Lasix PO 40 mg BID@08,16 YULI Administration Gabapentin 300 mg 05/08/20 11:20 05/10/20 08:13 Neurontin PO 300 mg TID YULI Administration Metoprolol Tartrat e 12.5 mg 05/07/20 18:00 05/10/20 08:11 Lopressor PO 12.5 mg BID YULI Administration Nicotine Polacrile x 2 mg 05/02/20 15:40 Nicorette BUCCAL Q2H PRN WITHDRAWAL Nystatin 1 applic 05/10/20 09:00 05/10/20 09:07 Nystatin Powder TOPICAL Not Given BID [facility] Ondansetron HCl 4 mg 05/02/20 20:14 05/08/20 12:24 Zofran IVP 4 mg Q6H PRN Administration NAUSEA AND VOMITI NG Potassium Chloride 20 meq 05/08/20 18:00 05/10/20 08:14 Klor-Con 10 PO 20 meq BID YULI Administration Rivaroxaban 20 mg 05/03/20 16:00 05/10/20 08:13 Xarelto PO 20 mg DAILY YULI Administration Tramadol HCl 50 mg 05/04/20 16:27 05/06/20 08:47 Ultram PO 50 mg Q8H PRN Administration MODERATE PAIN Trazodone HCl 25 mg 05/02/20 21:00 05/09/20 21:03 Desyrel PO 25 mg BEDTIME YULI Administration No Known Allergies Allergy (Verified 05/02/20 14:33) Vitals/I&O/Wt Last Vital Signs Temp 97.8 F 05/10/20 07:10 Pulse 100 05/10/20 08:12 Resp 18 05/10/20 07:10 BP 108/83 05/10/20 07:10 Pulse Ox 97 05/10/20 07:10 05/09/20 05/10/20 05/10/20 22:59 06:59 14:59 Intake Total 476 / 1126 150 / 1276 Output Total 500 / 640 550 / 1190 650 / 650 Balance -24 / 486 -400 / 86 -650 / -650 Weight last 48 hrs Weight 123.377 kg Weight 122.697 kg Physical Exam Const: COMMON NORMALS: no acute distress, patient oriented x3 and alert GENERAL APPEARANCE: cooperative and comfortable NUTRITIONAL APPEARANCE: obese morbidly obese ORIENTATION/CONSCIOUSNESS: Yes awake OTHER: -resting in chair by bedside HENMT: COMMON NORMALS: normocephalic, atraumatic, hearing grossly normal bilaterally and moist oral mucous membranes HEAD & SCALP: normocephalic and atraumatic Eye: COMMON NORMALS: Equal, round and reactive pupils present, EOMs intact bilaterally and conjunctivae normal CONJUNCTIVA: Yes conjunctivae normal PUPIL: Yes Equal, round and reactive pupils present Neck/C-Spine: COMMON NORMALS: full ROM GENERAL: Yes normal visual inspection and Yes trachea midline Resp: COMMON NORMALS: normal respiratory effort, No retractions, No use of accessory muscles and clear to auscultation bilaterally EFFORT & INSPECTION: Yes able to speak in complete sentences, Yes symmetric chest movement and Yes tachypneic AUSCULTATION: clear to auscultation bilaterally OTHER: -on RA Cardio: COMMON NORMALS: regular rate, regular rhythm, S1 normal heart sound present, S2 normal heart sound present and No murmurs present (Cardio) RATE: regular rate RHYTHM: regular rhythm HEART SOUNDS: S1 normal heart sound present and S2 normal heart sound present GI: COMMON NORMALS: Normal to inspection, nondistended, normoactive bowel sounds present, Soft to palpation and non-tender PALPATION: Yes Soft to palpation Extremity: COMMON NORMALS: normal to inspection, full ROM and no clubbing, cyanosis or edema; negative for no pedal edema Neuro: COMMON NORMALS: patient oriented x3, moves all extremities, no focal motor deficits and no sensory deficits noted SENSORIUM/ORIENTATION: Yes alert Psych: COMMON NORMALS: mental status grossly normal, Normal thought process present, cooperative, normal affect and speech normal SPEECH: Yes normal speech THOUGHT PROCESS: Normal thought process present Skin: COMMON NORMALS: no jaundice, no petechiae and no mottling NARRATIVE SKIN EXAM: -bilateral inguinal excoriation, R > L Urinary Catheter Management^: Emanuel Latex: Cath Placed During This Visit: yes Reason for Continuing Indwelling Catheter: Acute Urinary Retention or Obstruction Urinary Catheter Date of Insertion: 05/04/20 Urinary Catheter Time of Insertion: 10:40 Data : 05/09/20 04:40 05/09/20 04:40 A&P Assessment and plan (1) Cardiogenic shock: -improved and dobutamine drip discontinued -VSS; continue to monitor -cardiology consultation appreciated Status: Acute (2) Combined systolic and diastolic congestive heart failure, NYHA class 3: -better compensated following dobutamine drip; now transitioned to oral lasix -has had good diuresis, net negative fluid balance of 9.4 L -Echo: EF=38%, G3DD, global LV hypokinesis, moderate pulmonary HTN, moderate MR, trace AR, moderate TR -VSS; continue to monitor Status: Acute Qualifiers: Congestive heart failure chronicity: acute on chronic Qualified Code(s): I50.43 - Acute on chronic combined systolic (congestive) and diastolic (congestive) heart failure (3) Cardiorenal syndrome: -as noted above -renal function improved, good urine output consistently -renal US unremarkable Status: Acute Qualifiers: Heart failure presence: with heart failure Hypertensive chronic kidney disease stage: stage 1-4 or unspecified chronic kidney disease Qualified Code(s): I13.0 - Hypertensive heart and chronic kidney disease with heart failure and stage 1 through stage 4 chronic kidney disease, or unspecified chronic kidney disease (4) Paroxysmal atrial fibrillation with RVR: -presented with A.fib with RVR -telemetry monitoring -on digoxin, metoprolol -VSS; continue to monitor vitals -on AC with Xarelto -Echo as noted above Status: Acute (5) Elevated liver enzymes: -likely secondary to hepatic congestion from CHF exacerbation -noted to be hepatitis B and C positive, undetectable viral loads so not acute infection -improved LFTs -HIV negative -noted hepatic steatosis on US Status: Acute (6) BLAIR (acute kidney injury): -as noted above -improved Status: Acute (7) Peripheral Vascular Disease: -noted abnormal ABIs on L, suggestive of moderate PAD, mild to moderate diffuse plaque in the iliac and femoral arteries bilaterally -noted abnormal TBIs bilaterally; moderate PAD -venous stasis dermatitis clinically -no fracture or dislocation on x-ray -no DVT on bilateral venous duplex -noted blue toes initially; almost normal color now, warm to touch -noted evidence of plantar fasciitis on x-ray -on anticoagulation with Xarelto, ASA, statin -on gabapentin for pain given suspicion of neuropathy Status: Chronic (8) Smoking addiction: -nicotine replacement therapy -counseling provided, cessation encouraged Status: Chronic (9) Anxiety: -on trazadone, xanax PRN Status: Chronic Additional A&P Information -Morbid obesity: BMI-41 kg/m2 -noted hx of medication non-compliance -hx of hyperlipidemia; on statin -likely has underlying CKD, unknown stage as no baseline labs to reference. -physical deconditioning; so far has been reluctant to work with therapy, PT/OT evaluations appreciated -cardiac diet as tolerated -DVT ppx not needed as on Xarelto -Dispo: home with HH; plan is for him to live in a motel so I would like him to be a little more independent before discharge -Code status: FULL code Attestations Medical Necessity Statement*: Patient requires hospitalization for continued care, optimization of medication and additional therapy. Time Spent in Patient Care: 16 - 35 minutes (>than 50% of time spent in counselling and/or direct pt care on unit). Coding Level of Care Code Acute [employer] for Ckg Fwd Exam Comprehensive Diagnoses Cardiogenic shock R57.0 Combined systolic and diastolic congestive heart failure, NYHA class 3 I50.43 Congestive heart failure chronicity: acute on chronic Cardiorenal syndrome I13.0 Heart failure presence: with heart failure Hypertensive chronic kidney disease stage: stage 1-4 or unspecified chronic kidney disease Paroxysmal atrial fibrillation with RVR I48.0 Elevated liver enzymes R74.8 BLAIR (acute kidney injury) N17.9 Peripheral Vascular Disease I73.9 Smoking addiction F17.200 Anxiety F41.9
--- NOTE | 2020-05-10 13:09 | PC.OT ---
Patient contacted for therapy this date stating he had already had a bed bath with [employer] and had walked with PT. He refused OT tx this date.
[2020-05-10] MEDS: polyethylene glycol 3350 Pkt 17 gm PO (13:20)
[2020-05-10] MEDS: sennosides-docusate Tablet 2 TAB PO (17:30)
--- NOTE | 2020-05-10 19:25 | PM.PN ---
Subjective Subjective: Interval history: Continue to improve. Pain stable heart rate is improving. Medications: Reviewed: Yes Medication Review Details: Active Medications Generic Name Dose Route Start Last Admin Trade Name Freq PRN Reason Stop Dose Admin Acetaminophen 650 mg 05/02/20 15:40 Tylenol PO Q6H PRN Mild/Mod Pain Or Temp >/= 101 Hydrocodone Bitart /Acetaminophen 2 tab 05/06/20 19:25 05/07/20 15:36 [place] 5-325 Mg PO 2 tab Q6H PRN Administration MODERATE TO SEVER E PAIN Alprazolam 0.5 mg 05/02/20 18:13 05/10/20 02:01 Xanax PO 0.5 mg DAILY PRN Administration ANXIETY Artificial Tears 1 drop 05/07/20 08:56 05/07/20 09:13 Isopto Tears EYE-BOTH 1 applic DAILY PRN Administration DRY EYE(S) Aspirin 81 mg 05/03/20 09:00 05/10/20 08:12 Aspirin Ec PO 81 mg DAILY YULI Administration Atorvastatin Calci um 20 mg 05/02/20 21:00 05/02/20 20:50 Lipitor PO Not Given BEDTIME YULI Digoxin 125 mcg 05/09/20 09:00 05/10/20 08:12 Lanoxin PO 125 mcg DAILY YULI Administration Furosemide 40 mg 05/08/20 16:00 05/10/20 08:13 Lasix PO 40 mg BID@08,16 YULI Administration Gabapentin 300 mg 05/08/20 11:20 05/10/20 08:13 Neurontin PO 300 mg TID YULI Administration Metoprolol Tartrat e 12.5 mg 05/07/20 18:00 05/10/20 08:11 Lopressor PO 12.5 mg BID YULI Administration Nicotine Polacrile x 2 mg 05/02/20 15:40 Nicorette BUCCAL Q2H PRN WITHDRAWAL Nystatin 1 applic 05/10/20 09:00 05/10/20 09:07 Nystatin Powder TOPICAL Not Given BID YULI Ondansetron HCl 4 mg 05/02/20 20:14 05/08/20 12:24 Zofran IVP 4 mg Q6H PRN Administration NAUSEA AND VOMITI NG Potassium Chloride 20 meq 05/08/20 18:00 05/10/20 08:14 Klor-Con 10 PO 20 meq BID YULI Administration Rivaroxaban 20 mg 05/03/20 16:00 05/10/20 08:13 Xarelto PO 20 mg DAILY YULI Administration Tramadol HCl 50 mg 05/04/20 16:27 05/06/20 08:47 Ultram PO 50 mg Q8H PRN Administration MODERATE PAIN Trazodone HCl 25 mg 05/02/20 21:00 05/09/20 21:03 Desyrel PO 25 mg BEDTIME YULI Administration No Known Allergies Allergy (Verified 05/02/20 14:33) Vitals/I&O/Wt Last Vital Signs Temp 99.0 F 05/10/20 15:51 Pulse 82 05/10/20 15:51 Resp 20 H 05/10/20 15:51 BP 119/88 05/10/20 15:51 Pulse Ox 97 05/10/20 15:51 05/10/20 05/10/20 05/10/20 06:59 14:59 22:59 Intake Total 150 / 1276 220 / 220 240 / 460 Output Total 550 / 1190 950 / 950 200 / 1150 Balance -400 / 86 -730 / -730 40 / -690 Weight last 48 hrs Weight 272 lb Weight 270 lb 8 oz Physical Exam Narrative: EXAM NARRATIVE: GENERAL: Patient is alert, awake and oriented x3. NECK: No jugular vein distension. HEENT: No cyanosis. No icterus. No pallor. HEART: Regular S1 and S2. No murmur, rub or gallop. LUNGS: Clear to auscultate bilaterally. ABDOMEN: Soft, nontender and nondistended. Positive bowel sounds. No guarding, rebound or tenderness. CENTRAL NERVOUS SYSTEM: Grossly nonfocal. EXTREMITIES: Lower extremities without edema bilaterally. Urinary Catheter Management^: Emanuel Latex: Cath Placed During This Visit: yes Reason for Continuing Indwelling Catheter: Acute Urinary Retention or Obstruction Urinary Catheter Date of Insertion: 05/04/20 Urinary Catheter Time of Insertion: 10:40 Data : 05/09/20 04:40 05/09/20 04:40 A&P Assessment and plan (1) Paroxysmal atrial fibrillation with RVR: Continue to optimize medicine. Status: Acute (2) Acute exacerbation of CHF (congestive heart failure): Switch to p.o. Lasix continue to monitor Status: Deleted (3) Peripheral Vascular Disease: Stable. Continue current regimen most likely discharge Status: Chronic Attestations Medical Necessity Statement*: Require continuation hospitalization for above defined care Coding Level of Care Code Established Pt Acute Type [employer] for Chg Fwd Patient Type Established History Expanded Problem Focused Exam Expanded Problem Focused Medical Decision Making Moderate Complexity Diagnoses Paroxysmal atrial fibrillation with RVR I48.0 Acute exacerbation of CHF (congestive heart failure) I50.9 Peripheral Vascular Disease I73.9
[2020-05-10] MEDS: trazodone 50 mg Tablet 25 MG PO (20:18)
[2020-05-11] VITALS: BP 96/50; PULSE 91; RESP 32; TEMP 36.7; O2SAT 94
[2020-05-11 04:00] VITALS: BP 126/82; PULSE 100; RESP 25; TEMP 36.8; O2SAT 95
[2020-05-11 07:15] VITALS: BP 111/80; PULSE 99; RESP 22; TEMP 36.1; O2SAT 99
--- NOTE | 2020-05-11 08:08 | PM.DCS ---
Discharge Providers Date of Admission: 05/02/20 14:14 Date of Discharge: May 11, 2020 Attending Provider at Admission: Ced Hankins Attending Provider at Discharge: Cyndee Sharp MD Consults: Cardiology Diagnoses at Discharge Discharge Diagnosis (1) Paroxysmal atrial fibrillation with RVR: Status: Chronic Permanent problem details: -presented with Rupinder.fib with RVR -telemetry monitoring -on digoxin, metoprolol -VSS; continue to monitor vitals -on AC with Xarelto -Echo as noted above (2) Peripheral Vascular Disease: Status: Chronic Permanent problem details: -noted abnormal ABIs on L, suggestive of moderate PAD, mild to moderate diffuse plaque in the iliac and femoral arteries bilaterally -noted abnormal TBIs bilaterally; moderate PAD -venous stasis dermatitis clinically -no fracture or dislocation on x-ray -no DVT on bilateral venous duplex -noted blue toes initially; almost normal color now, warm to touch -noted evidence of plantar fasciitis on x-ray -on anticoagulation with Xarelto, ASA, statin -on gabapentin for pain given suspicion of neuropathy (3) Cardiorenal syndrome: Status: Acute Permanent problem details: -as noted above -renal function improved, good urine output consistently -renal US unremarkable Qualifiers: Heart failure presence: with heart failure Hypertensive chronic kidney disease stage: stage 1-4 or unspecified chronic kidney disease Qualified Code(s): I13.0 - Hypertensive heart and chronic kidney disease with heart failure and stage 1 through stage 4 chronic kidney disease, or unspecified chronic kidney disease (4) Cardiogenic shock: Status: Resolved Permanent problem details: -s/p dobutamine drip (5) Combined systolic and diastolic congestive heart failure, NYHA class 3: Status: Chronic Permanent problem details: -better compensated following dobutamine drip; transitioned to oral lasix -has had good diuresis, net negative fluid balance of 9.3 L -Echo: EF=38%, G3DD, global LV hypokinesis, moderate pulmonary HTN, moderate MR, trace AR, moderate TR -VSS; continue to monitor Qualifiers: Congestive heart failure chronicity: acute on chronic Qualified Code(s): I50.43 - Acute on chronic combined systolic (congestive) and diastolic (congestive) heart failure (6) Elevated liver enzymes: Status: Acute Permanent problem details: -likely secondary to hepatic congestion from CHF exacerbation -noted to be hepatitis B and C positive, undetectable viral loads so not acute infection -improved LFTs -HIV negative -noted hepatic steatosis on US (7) BLAIR (acute kidney injury): Status: Resolved (8) Smoking addiction: Status: Chronic Permanent problem details: -nicotine replacement therapy -counseling provided, cessation encouraged (9) Anxiety: Status: Chronic Permanent problem details: -on trazadone, xanax PRN Other Information Additional DC diagnoses/information: -Morbid obesity: BMI-41 kg/m2 -noted hx of medication non-compliance -hx of hyperlipidemia; on statin -likely has underlying CKD, unknown stage as no baseline labs to reference. -physical deconditioning; more motivated to work with therapy, PT/OT evaluations appreciated Reason for Visit Reason for Visit: Swelling in legs Hospital Course Hospital Course: Abraham Newton is a 65 year old gentleman originally from [place] but most recently in [place] who has been traveling across country with his children in a trailer and eventually plans to settle down in [place]. He has a past medical history of paroxysmal A. fib on Xarelto, congestive heart failure, hypertension, hyperlipidemia, anxiety, smoking addiction. He had been noncompliant with his medications for about a week prior to presentation to the ER, intermittently taking his medications when he did take them. He presented to the ER on May 02 because of extreme shortness of breath on exertion worsening x 2 days with orthopnea and PND in addition to worsening bilateral foot swelling. He was admitted to the hospital for treatment of atrial fibrillation with rapid ventricular response and congestive heart failure exacerbation. He was started on Cardizem drip and IV diuresis. On his first night in the hospital, patient developed hypotension after which Cardizem drip and diuresis was stopped. Additional complications included development of acute renal failure, anuria, deranged liver functions. Despite IVF challenge x 24 hrs, he continued to decompensate at which point he was started on dobuatmine drip for cardiogenic shock and cardiology was consulted. He had a robust diuretic response with improvement in his renal and liver functions. Dobutamine drip was discontinued on 05/07. Acute hepatitis panel was positive for hepatitis B and C though viral loads for both are undetectable indicating chronic infections. On presentation, patient had bilateral blue toes which were cold to touch as compared to rest of his feet in addition to foot pain for at least 3 days. Per the patient, this has been occurring intermittently x 2 years. Further workup has revealed moderate peripheral vascular disease and per cardiology recommendations, was continued on anticoagulation with xarelto. Circulation has improved with medical management including addition of gabapentin due to suspicion for concurrent neuropathy and evidence of plantar fasciitis on imaging. He is clinically euvolemic, voiding independently with removal of Emanuel catheter, been hemodynamically stable and afebrile and increasingly ambulatory. He has been on RA with appropriate oxygen saturation x 48 hrs. He will be discharged home with home health services with appropriate follow up with primary care provider and cardiology. He is at risk of readmission due to hx of non-compliance and multiple medical comorbidities. Medication compliance has been strongly encouraged. Discharge Summary: -Patient to follow up with primary care provider as scheduled -Patient to follow up with cardiology in 2 weeks -Patient to follow up with podiatry as soon as next available appointment Physical Exam Const: COMMON NORMALS: no acute distress, patient oriented x3 and alert GENERAL APPEARANCE: cooperative and comfortable NUTRITIONAL APPEARANCE: obese morbidly obese ORIENTATION/CONSCIOUSNESS: Yes awake OTHER: -resting in bed HENMT: COMMON NORMALS: normocephalic, atraumatic, hearing grossly normal bilaterally and moist oral mucous membranes HEAD & SCALP: normocephalic and atraumatic Eye: COMMON NORMALS: Equal, round and reactive pupils present, EOMs intact bilaterally and conjunctivae normal CONJUNCTIVA: Yes conjunctivae normal PUPIL: Yes Equal, round and reactive pupils present Neck/C-Spine: COMMON NORMALS: full ROM GENERAL: Yes normal visual inspection and Yes trachea midline Resp: COMMON NORMALS: normal respiratory effort, No retractions, No use of accessory muscles and clear to auscultation bilaterally EFFORT & INSPECTION: Yes able to speak in complete sentences, Yes symmetric chest movement and Yes tachypneic AUSCULTATION: clear to auscultation bilaterally OTHER: -on RA Cardio: COMMON NORMALS: regular rate, regular rhythm, S1 normal heart sound present, S2 normal heart sound present and No murmurs present (Cardio) RATE: regular rate RHYTHM: regular rhythm HEART SOUNDS: S1 normal heart sound present and S2 normal heart sound present GI: COMMON NORMALS: Normal to inspection, nondistended, normoactive bowel sounds present, Soft to palpation and non-tender PALPATION: Yes Soft to palpation Extremity: COMMON NORMALS: normal to inspection, full ROM and no clubbing, cyanosis or edema; negative for no pedal edema Neuro: COMMON NORMALS: patient oriented x3, moves all extremities, no focal motor deficits and no sensory deficits noted SENSORIUM/ORIENTATION: Yes alert Psych: COMMON NORMALS: mental status grossly normal, Normal thought process present, cooperative, normal affect and speech normal SPEECH: Yes normal speech THOUGHT PROCESS: Normal thought process present Skin: COMMON NORMALS: no jaundice, no petechiae and no mottling NARRATIVE SKIN EXAM: -bilateral inguinal excoriation, R > L Urinary Catheter Management^: Emanuel Latex: Cath Placed During This Visit: yes Reason for Continuing Indwelling Catheter: Acute Urinary Retention or Obstruction Urinary Catheter Date of Insertion: 05/04/20 Urinary Catheter Time of Insertion: 10:40 Discharge Data Data Completed and Pending: Completed Studies During Hospitalization Category Date Time Status CT chest wo con 7 1250 Routine Cat Scan 05/03/20 15:55 Completed XR chest 1V dain ble [id number] Stat Exams 05/02/20 12:39 Completed XR foot LT 2V 736 20 Routine Exams 05/08/20 12:03 Completed XR foot RT 2V 736 20 Routine Exams 05/08/20 12:03 Completed XR foot RT min 3V * [id number] Routine Exams 05/02/20 15:40 Completed CV ankle brachial index [id number] Routi ne Ultrasound 05/02/20 15:40 [place] [id number] Urge nt Ultrasound 05/02/20 12:54 Completed CV echo complete* [id number] Routine Ultrasound 05/02/20 15:40 Completed CV renal doppler 90440 Routine Ultrasound 05/05/20 06:00 [place] [id number] Routin e Ultrasound 05/02/20 15:40 Completed US abdomen comple te* [id number] Routine Ultrasound 05/05/20 06:00 Completed Vitals: Last Vital Signs Temp 97.0 F L 05/11/20 07:15 Pulse 99 05/11/20 07:15 Resp 22 H 05/11/20 07:15 BP 111/80 05/11/20 07:15 Pulse Ox 99 05/11/20 07:15 Discharge Plan Discharge Patient Disposition: Home Health Service Condition: Stable Prescriptions: New trazodone 50 mg Tablet 25 mg PO BEDTIME Qty: 30 RF: 0 polyethylene glycol 3350 17 gram Powder In Packet 17 g PO DAILY Qty: 30 RF: 0 hydrocodone-acetaminophen 5-325 mg Tablet 1 tab PO Q6H PRN (Reason: Moderate To Severe Pain) Qty: 30 RF: 0 potassium chloride 10 mEq Tablet Extended Release 20 meq PO BID 30 Days Qty: 120 RF: 0 alprazolam 0.5 mg Tablet 0.5 mg PO DAILY PRN (Reason: Anxiety) Qty: 30 RF: 0 gabapentin 300 mg Capsule 300 mg PO TID Qty: 90 RF: 0 digoxin 125 mcg (0.125 mg) Tablet 125 mcg PO DAILY Qty: 30 RF: 0 metoprolol tartrate 25 mg Tablet 12.5 mg PO BID Qty: 30 RF: 0 Continued Lipitor 20 mg Tablet 20 mg PO BEDTIME Qty: 30 RF: 0 aspirin 81 mg Tablet,Delayed Release (Dr/Ec) 81 mg PO DAILY Qty: 30 RF: 0 Tylenol Extra Strength 500 mg Tablet 1,000 mg PO PRN Qty: 30 RF: 0 Xarelto 20 mg Tablet 20 mg PO DAILY Qty: 30 RF: 0 Changed Lasix 40 mg Tablet 40 mg PO BID 30 Days Qty: 60 RF: 0 Discontinued lisinopril 20 mg Tablet 20 mg PO DAILY RF: 0 metoprolol succinate 100 mg Tablet Extended Release 24 Hr 100 mg PO DAILY RF: 0 magnesium 1 tab PO DAILY RF: 0 potassium chloride See Rx Instructions .ROUTE .COMPLEX RF: 0 Discharge Orders: Discharge Order (Routine); Ordered 05/11/20 Ordered By: Cyndee Sharp Other Ambulatory Orders: DME: Bobby (Order) Location: None Selected Ordered By: Cyndee Sharp Referrals: [facility] [place] [facility] [Outside] - 4-7 days (Follow up for intake assessment. After completion you will be referred for requested services such as psychiatry, medication management for anxiety, therapy, and/or case management.) Chandana Bonilla DPM [Physician] - 1 month Brennon Salazar MD [Physician] - 2 weeks Waleska Valentino FNP-C [Nurse Practitioner] - 05/12/20 10:00 am Discharge Diet: Cardiac Discharge Activity: Increase activity as tolerated, Use walker/crutches as instructed and As per PT/OT instructions Discharge Attestations Time Spent in Discharge Care*: greater than 30 min Specific Discharge Activities: Specific discharge activities: educating patient, discussing with disease case manager/social workers/dc planners, documenting/other paperwork and evaluating patient/reviewing data Time Spent in Smoking Cessation: Time spent discussing smoking cessation with patient: 3 to 10 minutes Details of Smoking Cessation Education: -smoking cessation encouraged. Status at Discharge: Cognitive status at discharge: cognitively intact, Behavioral status at discharge: cooperative and independent in ADL's, Functional status at discharge: uses cane/walker Overall status at discharge: patient is progressing back to baseline Quality Metrics Clinical Quality Measures During this hospital stay, did patient experience: None Coding Level of Care Code Acute Heel Boom Operator for g Fwd Exam Comprehensive Diagnoses Paroxysmal atrial fibrillation with RVR I48.0 Peripheral Vascular Disease I73.9 Cardiorenal syndrome I13.0 Heart failure presence: with heart failure Hypertensive chronic kidney disease stage: stage 1-4 or unspecified chronic kidney disease Cardiogenic shock R57.0 Combined systolic and diastolic congestive heart failure, NYHA class 3 I50.43 Congestive heart failure chronicity: acute on chronic Elevated liver enzymes R74.8 BLAIR (acute kidney injury) N17.9 Smoking addiction F17.200 Anxiety F41.9
[2020-05-11] MEDS: nystatin powder 15 gm Btl 1 APPLIC TOPICAL (08:24)
[2020-05-11 08:25] VITALS: PULSE 96
[2020-05-11] MEDS: sennosides-docusate Tablet 2 TAB PO (08:25)
[2020-05-11] MEDS: metoprolol tartrate 25 mg Tablet 12.5 MG PO (08:25)
[2020-05-11] MEDS: aspirin 81 mg EC Tablet PO (08:25)
[2020-05-11] MEDS: FUROsemide 40 mg Tablet PO (08:25)
[2020-05-11] MEDS: gabapentin 300 mg Capsule PO (08:25)
[2020-05-11] MEDS: potassium chloride ER 10 mEq Tablet 20 MEQ PO (08:25)
[2020-05-11] MEDS: polyethylene glycol 3350 Pkt 17 gm PO (08:25)
[2020-05-11] MEDS: rivaroxaban 10 mg Tablet 20 MG PO (08:25)
[2020-05-11] MEDS: digoxin 125 mcg Tablet PO (08:25)
--- NOTE | 2020-05-11 09:49 | PC.OT ---
OT treatment attempted twice this morning and pt refused both times. He is worried about coordinating his discharge and doesn't want to miss any phone calls while in therapy. Will attempt again tomorrow if he is still here. Co-sign: SAM Crump/Jackson
[2020-05-11 10:52] VITALS: BP 114/86; PULSE 84; RESP 30; TEMP 36.4; O2SAT 98
[2020-05-11 10:55] VITALS: BP 114/86; PULSE 84; RESP 30; TEMP 36.4; O2SAT 98
--- NOTE | 2020-05-11 11:50 | DCPLANNER ---
IMM completed on 05/11/2020 @ 1132. Copy of rights given to pt.
--- NOTE | 2020-05-11 13:32 | P.PN_ITS ---
Subjective Subjective: Interval history: Patient doing fine from cardiovascular perspective heart rate is under control he is well compensated and would like to go home today. His foot pain is better however still has some pain upon walking on the soles due to fasciitis. He has good dopplerable anterior posterior tibial pulse bilaterally. Medications: Reviewed: Yes Medication Review Details: Active Medications Generic Name Dose Route Start Last Admin Trade Name Freq PRN Reason Stop Dose Admin Acetaminophen 650 mg 05/02/20 15:40 Tylenol PO Q6H PRN Mild/Mod Pain Or Temp >/= 101 Hydrocodone Bitart /Acetaminophen 2 tab 05/06/20 19:25 05/07/20 15:36 [place]et 5-325 Mg PO 2 tab Q6H PRN Administration MODERATE TO SEVER E PAIN Alprazolam 0.5 mg 05/02/20 18:13 05/10/20 02:01 Xanax PO 0.5 mg DAILY PRN Administration ANXIETY Artificial Tears 1 drop 05/07/20 08:56 05/07/20 09:13 Isopto Tears EYE-BOTH 1 applic DAILY PRN Administration DRY EYE(S) Aspirin 81 mg 05/03/20 09:00 05/10/20 08:12 Aspirin Ec PO 81 mg DAILY YULI Administration Atorvastatin Calci um 20 mg 05/02/20 21:00 05/02/20 20:50 Lipitor PO Not Given BEDTIME YULI Digoxin 125 mcg 05/09/20 09:00 05/10/20 08:12 Lanoxin PO 125 mcg DAILY YULI Administration Furosemide 40 mg 05/08/20 16:00 05/10/20 08:13 Lasix PO 40 mg BID@08,16 YULI Administration Gabapentin 300 mg 05/08/20 11:20 05/10/20 08:13 Neurontin PO 300 mg TID YULI Administration Metoprolol Tartrat e 12.5 mg 05/07/20 18:00 05/10/20 08:11 Lopressor PO 12.5 mg BID YULI Administration Nicotine Polacrile x 2 mg 05/02/20 15:40 Nicorette BUCCAL Q2H PRN WITHDRAWAL Nystatin 1 applic 05/10/20 09:00 05/10/20 09:07 Nystatin Powder TOPICAL Not Given BID YULI Ondansetron HCl 4 mg 05/02/20 20:14 05/08/20 12:24 Zofran IVP 4 mg Q6H PRN Administration NAUSEA AND VOMITI NG Potassium Chloride 20 meq 05/08/20 18:00 05/10/20 08:14 Klor-Con 10 PO 20 meq BID YULI Administration Rivaroxaban 20 mg 05/03/20 16:00 05/10/20 08:13 Xarelto PO 20 mg DAILY YULI Administration Tramadol HCl 50 mg 05/04/20 16:27 05/06/20 08:47 Ultram PO 50 mg Q8H PRN Administration MODERATE PAIN Trazodone HCl 25 mg 05/02/20 21:00 05/09/20 21:03 Desyrel PO 25 mg BEDTIME YULI Administration No Known Allergies Allergy (Verified 05/02/20 14:33) Vitals/I&O/Wt Last Vital Signs Temp 97.6 F 05/11/20 10:55 Pulse 84 05/11/20 10:55 Resp 30 H 05/11/20 10:55 BP 114/86 05/11/20 10:55 Pulse Ox 98 05/11/20 10:55 05/10/20 05/11/20 05/11/20 22:59 06:59 14:59 Intake Total 980 / 1200 360 / 360 Output Total 700 / 1650 150 / 1800 850 / 850 Balance 280 / -450 -150 / -600 -490 / -490 Weight last 48 hrs Weight 269 lb Weight 272 lb Physical Exam Narrative: EXAM NARRATIVE: GENERAL: Patient is alert, awake and oriented x3. NECK: No jugular vein distension. HEENT: No cyanosis. No icterus. No pallor. HEART: Irregularly S1 and S2. No murmur, rub or gallop. LUNGS: Clear to auscultate bilaterally. ABDOMEN: Soft, nontender and nondistended. Positive bowel sounds. No guarding, rebound or tenderness. CENTRAL NERVOUS SYSTEM: Grossly nonfocal. EXTREMITIES: Lower extremities without edema bilaterally. Urinary Catheter Management^: Emanuel Latex: Cath Placed During This Visit: yes Reason for Continuing Indwelling Catheter: Acute Urinary Retention or Obstruction Urinary Catheter Date of Insertion: 05/04/20 Urinary Catheter Time of Insertion: 10:40 Data : 05/09/20 04:40 05/09/20 04:40 A&P Assessment and plan (1) Paroxysmal atrial fibrillation with RVR: Continue metoprolol 12.5 twice daily with digoxin and anticoagulation. Status: Chronic (2) Acute exacerbation of CHF (congestive heart failure): Switched to 40 mg of Lasix with 20 meq of potassium chloride. Patient has been given heart failure education advised to follow-up closely with primary care physician and cardiology. Status: Deleted Qualifiers: Heart failure type: combined systolic and diastolic Qualified Code(s): I50.43 - Acute on chronic combined systolic (congestive) and diastolic (congestive) heart failure (3) Peripheral Vascular Disease: Stable feet pain is due to fasciitis does not have any vascular compromise so far. Advised to follow-up with primary care physician for fasciitis. Status: Chronic Attestations Medical Necessity Statement*: Patient can be discharged today Coding Level of Care Code Established Pt Acute Echocardiograph Tech for Chg Fwd Patient Type Established History Expanded Problem Focused Exam Expanded Problem Focused Medical Decision Making Moderate Complexity Diagnoses Paroxysmal atrial fibrillation with RVR I48.0 Acute exacerbation of CHF (congestive heart failure) I50.43 Heart failure type: combined systolic and diastolic Peripheral Vascular Disease I73.9
== END 2020-05-11 14:33 | disposition home health service (06) | DRG 291 ==
LOC: ER 14:27 → CSU 14:55
PROVIDERS: Internal Medicine Cardiovascular Disease; Physician Assistant; Student in an Organized Health Care Education/Training Program; Admitting Provider Internal Medicine; Visit Provider Family Medicine
DX: I11.0 Hypertensive heart disease with heart failure (principal); R57.0 Cardiogenic shock; I75.021 Atheroembolism of right lower extremity; N17.9 Acute kidney failure, unspecified; B19.10 Unspecified viral hepatitis B without hepatic coma; I50.43 Acute on chronic combined systolic (congestive) and diastolic (congestive) heart failure; I48.0 Paroxysmal atrial fibrillation; Z79.01 Long term (current) use of anticoagulants; F17.210 Nicotine dependence, cigarettes, uncomplicated; F41.9 Anxiety disorder, unspecified; E78.5 Hyperlipidemia, unspecified; I87.2 Venous insufficiency (chronic) (peripheral); R91.8 Other nonspecific abnormal finding of lung field; Z91.14 Patient's other noncompliance with medication regimen; I73.9 Peripheral vascular disease, unspecified; I95.9 Hypotension, unspecified; B19.20 Unspecified viral hepatitis C without hepatic coma; Z79.82 Long term (current) use of aspirin; M72.2 Plantar fascial fibromatosis; G62.9 Polyneuropathy, unspecified; M79.672 Pain in left foot; M79.671 Pain in right foot
CPT/HCPCS: 12345; 36415; 51702; 71045; 71250; 73620; 73630; 76700; 80048; 80053; 80061; 80162; 81001; 82436; 82550; 82570; 83036; 83735; 83880; 84133; 84300; 84484; 85025; 85651; 85999; 86140; 86705; 86706; 86709; 86803; 87040; 87340; 87517; 87522; 87806; 93005; 93306; 93922; 93925; 93970; 93975; 96372; 96375; 97110; 97161; 97165; 99283; J0610; J1250; J1650; J1940; J2405; J3010; J3475; J3490; J7030; J7050

== ENCOUNTER → 2020-08-16 15:30 | Outpatient (BNVA) | payer MEDICARE, OTHER, SELFPAY | PROVIDERS: Visit Provider Nurse Practitioner | DX: I11.0 Hypertensive heart disease with heart failure (principal); F41.9 Anxiety disorder, unspecified; I48.91 Unspecified atrial fibrillation; G47.00 Insomnia, unspecified; E78.5 Hyperlipidemia, unspecified; M14.60 Charcot's joint, unspecified site; I50.9 Heart failure, unspecified | CPT/HCPCS: 80053; 84443; 85025 ==